=== PATIENT | female | born 1965 | race Caucasian/White ===

== ENCOUNTER → 2022-07-21 | Outpatient (CLI) | payer OTHER ==
--- NOTE | 2022-07-27 20:03 | MM ---
Reason for Exam: Screening (asymptomatic). Last mammogram was performed 3 year(s) and 11 month(s) ago. Patient History: Menarche at age 16. First Full-Term at age 19. Postmenopausal. Risk Values: Deirdre 5 year model risk: 0.8%. NCI Lifetime model risk: 5.5%. Prior Study Comparison: No prior studies available for comparison. Tissue Density: The breast tissue is heterogeneously dense. This may lower the sensitivity of mammography. Findings: Analyzed By CAD. No significant mass, suspicious microcalcification, or other discrete abnormality is seen. Overall Assessment: Negative, BI-RAD 1 Management: Screening Mammogram of both breasts in 1 year. 1. Patient should continue monthly self breast exams. 2. A clinical breast exam by your physician is recommended on an annual basis. 3. This exam should not preclude additional follow-up of suspicious palpable abnormalities. Electronically signed and approved by: Fay Mooyd M.D. Radiologist
== END | disposition home or self-care (01) ==
LOC: RADMAMWWP 09:23
PROVIDERS: ATTEND Physician Assistant
DX: Z12.31 Encounter for screening mammogram for malignant neoplasm of breast (principal)
CPT/HCPCS: 77063; 77067

== ENCOUNTER → 2023-07-23 | Outpatient (CLI) | payer OTHER ==
--- NOTE | 2023-07-24 15:49 | MM ---
Reason for Exam: Screening (asymptomatic). Last screening mammogram was performed 12 month(s) ago. Patient History: Menarche at age 16. First Full-Term at age 19. Postmenopausal. Risk Values: Deirdre 5 year model risk: 0.8%. NCI Lifetime model risk: 5.3%. Prior Study Comparison: 09/12/2017 Bilateral MG diagnostic mammo w CAD TRACY - 2, [facility]. 08/14/2018 Bilateral MG diagnostic mammo w CAD TRACY - 2, [facility]. 07/21/2022 Bilateral MG 3D screening mammo w/cad, [facility]. Tissue Density: There are scattered fibroglandular densities. Findings: Analyzed By CAD. Pattern appears symmetrical and stable. No significant interval change is evident. Chronic nodularity is within the upper outer left breast. Benign-appearing punctate calcifications within the left breast. No suspicious groups of microcalcifications, spiculated or lobular masses, architectural distortion or other secondary signs of malignancy are mammographically apparent. Overall Assessment: Benign, BI-RAD 2 Management: Screening Mammogram of both breasts in 1 year. A negative mammogram report should not preclude additional follow up of suspicious palpable abnormalities. Patient should continue monthly self breast exam. A clinical breast exam by your physician is recommended on an annual basis and results should be correlated with mammographic findings. Electronically signed and approved by: Prem Valadez D.O. Radiologis
== END | disposition home or self-care (01) ==
LOC: RADMAMWWP 16:17
PROVIDERS: ATTEND Student in an Organized Health Care Education/Training Program
DX: Z12.31 Encounter for screening mammogram for malignant neoplasm of breast (principal); Z78.0 Asymptomatic menopausal state
CPT/HCPCS: 77063; 77067

== ENCOUNTER → 2023-09-07 | Outpatient (CLI) | payer OTHER ==
--- NOTE | 2023-09-07 15:27 | CT ---
EXAMINATION TYPE: CT chest wo con DATE OF EXAM: 09/07/2023 COMPARISON: 09/19/2015 HISTORY: 58-year-old female R91.8 OTHER NONSPECIFIC ABNORMAL FINDING OF LUNG F, Other nonspecific abn ormal findings of lung field TECHNIQUE: Contiguous axial scanning of the chest without IV contrast. Coronal/sagittal reconstructio ns performed. CT DLP: 123.00mGycm. Automatic exposure control utilized for a dose reduction. FINDINGS: Heart normal size without pericardial effusion. Aorta normal caliber with conventional arch vessel branching anatomy. No thoracic lymphadenopathy by CT size criteria. All of the is moderate to advanced emphysematous lupe nges. Right apical pleural-parenchymal scarring. 4 mm anterior right basilar pulmonary nodule. No consolidation or pleural effusion. Visualized upper abdomen shows no gross anomaly. Bones: No osseous destructive process. IMPRESSION: 1. COPD with moderate to advanced emphysema. No acute pulmonary process. 2. A 4 mm anterior right basilar pulmonary nodule. This was present back on the patient's 2015 CT abd omen and pelvis compatible with a benign etiology.
== END | disposition home or self-care (01) ==
LOC: RADCTMAIN 13:37
PROVIDERS: ATTEND Student in an Organized Health Care Education/Training Program
DX: J43.9 Emphysema, unspecified (principal); R91.8 Other nonspecific abnormal finding of lung field
CPT/HCPCS: 71250

== ENCOUNTER → 2024-07-18 | Outpatient (CLI) | payer OTHER ==
--- NOTE | 2024-07-18 13:29 | CT ---
EXAMINATION TYPE: CT chest wo con CT DLP: 150.1 mGycm, Automated exposure control for dose reduction was used. DATE OF EXAM: 07/18/2024 9:44 AM COMPARISON: CT chest 09/07/2023, CT abdomen and pelvis 09/19/2015. CLINICAL INDICATION:Female, 59 years old with history of F17.210 NICOTINE DEPENDENCE, CIGARETTES, [facility] OMPLIC; PHH, lung nodule TECHNIQUE: Multiple axial images were obtained through the chest without IV contrast. Lack of IV or o ral contrast limits evaluation of solid and hollow organ viscera. . Coronal and sagittal reformats re viewed. FINDINGS: LUNGS/ PLEURA: Biapical pleural parenchymal scarring with right greater than left. Moderate to advanc ed centrilobular emphysematous changes demonstrated. Stable 4 mm anterior right basilar pulmonary nod ule (series 4, image 55). Development of left upper lobe curvilinear masslike consolidation with more solid component measuring 3.5 x 1.4 cm with central lucencies (series 4, image 15). There are linear and reticular opacities extending towards the lateral periphery. AIRWAY: Patent and unremarkable.. HEART: Size within normal limits. No pericardial effusion. MEDIASTINUM: No gross evidence of adenopathy. VASCULATURE: No aortic aneurysm. Mild atherosclerotic calcification of the aorta and its branches. MUSCULOSKELETAL: No acute osseous abnormalities. No aggressive osseous lesion SOFT TISSUES/LYMPH NODES: Unremarkable. LOWER NECK: No significant findings. UPPER ABDOMEN: No significant findings. IMPRESSION: 1. Development of left upper lobe linear masslike consolidation with surrounding reticular opacities. Nonspecific appearance with etiologies including lung neoplasm versus infectious/inflammatory etiolo gy. Consider further evaluation with PET/CT. 2. Stable anterior right basilar 4 mm pulmonary nodule dating back to 2014 and considered benign. 3. Moderate to advanced COPD changes are demonstrated.
== END | disposition home or self-care (01) ==
LOC: RADCTMAIN 09:22
PROVIDERS: ATTEND Family Medicine
DX: F17.210 Nicotine dependence, cigarettes, uncomplicated
CPT/HCPCS: 71250

== ENCOUNTER → 2024-09-26 | Outpatient (CLI) | payer OTHER ==
--- NOTE | 2024-09-30 13:54 | PE ---
EXAMINATION TYPE: PET CT fusion whole body DATE OF EXAM: 09/26/2024 CLINICAL INDICATION:Female, 59 years old with history of R91.8 LUNG MASS; TECHNIQUE: Following the intravenous administration of 10.2 mCi of F-18 FDG, whole body images are performed from the skull base to the midthigh. Images are reviewed on the computer in the coronal, a xial, and sagittal planes. Reconstructed rotating images are created on independent workstation and reviewed on the computer. A non-contrast CT is performed in conjunction with the PET scan. Glucose level 95 mg/dL CT DLP: 154 mGycm, Automated exposure control for dose reduction was used. COMPARISON: CT 07/18/2024, PET/CT None, MRI: None FINDINGS: Mediastinal SUV mean is 1.5. Hepatic parenchyma SUV mean is 2.2. SKULL BASE AND NECK: No suspicious radiotracer activity. CHEST, MEDIASTINUM, AND HILAR REGION: * Left upper lung peripheral consolidation/mass max SUV 16.2. Measuring at least 47 x 43 mm. Linear consolidation extending more posteriorly and medially max SUV 6.3 * Focus of uptake in the left subpectoral region possibly nonenlarged lymph node max SUV 2.8. ABDOMEN AND PELVIS: No suspicious radiotracer activity. MUSCULOSKELETAL STRUCTURES: No suspicious radiotracer activity. OTHER CT: * Mild emphysema. * Atherosclerosis of the carotid bifurcations. * Coronary artery atherosclerosis. IMPRESSION: Left upper lung intense uptake within the lung parenchyma consolidations concerning for malignancy. N o evidence for metastatic disease at this time. [facility], , 09/30/2024 1:52 PM
== END | disposition home or self-care (01) ==
LOC: RADPETMAIN 08:07
PROVIDERS: ATTEND Internal Medicine Critical Care Medicine
DX: R91.8 Other nonspecific abnormal finding of lung field (principal); J43.9 Emphysema, unspecified; I70.90 Unspecified atherosclerosis
CPT/HCPCS: 78816; A9552

== ENCOUNTER 2024-10-17 10:32 | Day surgery (SDC) | payer OTHER ==
[2024-10-15 13:59] VITALS: BMI 20.1
[~2024-10-17 10:32] MED LIST: LACTATED RINGERS 1,000 ML IV SCH
[2024-10-17] MEDS: IV FLUID CONTINUATION 1,000 ML IV ONE (11:28)
[2024-10-17] MEDS: LACTATED RINGERS 1,000 ML IV SCH (11:29)
[2024-10-17] MEDS: ATROPINE SULFATE 0.4 MG/ML 1 ML VIAL IM ONE (11:29)
[2024-10-17] MEDS ORDERED: SUCCINYLCHOLINE CHLORIDE 200 MG/10 ML VIAL IV ONE (11:39)
[2024-10-17] MEDS ORDERED: ALBUTEROL HFA INHALER INHALATION ONE (11:39)
[2024-10-17] MEDS ORDERED: ROCURONIUM 10 MG/ML (5 ML VIAL) IV ONE (11:39)
[2024-10-17] MEDS ORDERED: GLYCOPYRROLATE 0.2 MG/ML 2 ML VIAL ONE (11:39)
[2024-10-17] MEDS ORDERED: fentaNYL (PF) 50 MCG/ML 2 ML AMP ONE (11:39)
[2024-10-17] MEDS ORDERED: PROPOFOL 10 MG/ML 20 ML VIAL IV ONE (11:39)
[2024-10-17] MEDS ORDERED: LIDOCAINE 1% INJ 10MG/ML (20 ML MDV) ONE (11:39)
[2024-10-17] MEDS ORDERED: NEOSTIGMINE 1 MG/ML 10 ML VIAL ONE (11:39)
--- NOTE | 2024-10-17 12:32 | PCN ---
PROCEDURE NOTE PROCEDURES: Bronchoscopy, airway examination, therapeutic lavage, BAL left upper lobe, brushes left upper lobe, transbronchial and endobronchial biopsies left upper lobe. PREOPERATIVE DIAGNOSIS: Left upper lobe mass, rule out cancer. POSTOPERATIVE DIAGNOSIS: Left upper lobe mass, rule out cancer. The patient's procedure was done in room #1 [facility]. There was informed consent and universal timeout. ANESTHESIA PROVIDED: General endotracheal anesthesia. UTILITIES EQUIPMENT REPAIRER: Dr. Madrid. He was assisted by Dr. Mattie Metzger. DESCRIPTION OF PROCEDURE: After the patient was adequately sedated and on the effects of anesthesia, on the anesthesia machine, the bronchoscope was inserted through the bronchoscope adapter connected to the endotracheal tube. We did a thorough initial evaluation of both lungs. The right upper lobe and its 3 segments, right middle lobe and its 2 segments, right lower lobe and its 5 segments, left upper lobe proper and its 2 segments, lingula and its 2 segments, and left lower lobe and its 4 segments all appeared relatively normal. There was no dominant mass or tumor. There were minimal secretions noted throughout. They were suctioned without difficulty. Next, under fluoroscopic guidance, we did brushes x2, to the left upper lobe. We tried a sample of the anterior segment of left upper lobe and apical posterior segment of the left upper lobe. Subsequently, under fluoroscopic guidance. We did multiple transbronchial and endobronchial biopsies in the left upper lobe, focusing primarily on the anterior segment of left upper lobe and apical posterior segment of left upper lobe. Finally, we did a BAL left upper lobe. The patient tolerated the procedure well. There was minimal bleeding. We ensured hemostasis before the bronchoscope withdrawn. The patient tolerated the procedure well, was stable throughout the procedure. We used the fluoro machine to check for pneumothorax. There was no pneumothorax. The patient will have a chest x-ray after the procedure. The patient tolerated the procedure well and will be recovered. MMODL / IJN: [id number] /
[2024-10-17 12:35] VITALS: TEMP 97.1
--- NOTE | 2024-10-17 13:07 | FL ---
EXAMINATION TYPE: FL bronchoscopy DATE OF EXAM: 10/17/2024 12:23 PM COMPARISON: Pre Operative Images if available both CT/MRI or plain film CLINICAL INDICATION: Female, 59 years old with history of Abnormal Lung Finding; TECHNIQUE: FL bronchoscopy, multiple fluoroscopic images provided for procedure. Total fluoroscopy time: 1.37 min Total submitted images to PACS: 5 DAP: 0.5571 mGym2 Gycm2 uGym2 cGycm2 or equivalent. FINDINGS: ION bronchoscopy images demonstrate bronchoscope terminating in the lung. No immediate complications identified, no pneumothorax identified. IMPRESSION: 1. No evidence for intraoperative complication. 2. Please see the operative/procedural note for further details. [facility], , 10/17/2024 1:04 PM
[2024-10-17 13:10] VITALS: BP 123/76; PULSE 67; RESP 18
--- NOTE | 2024-10-17 14:17 | XR ---
EXAMINATION TYPE: XR chest 1V portable DATE OF EXAM: 10/17/2024 1:33 PM COMPARISON: 07/18/2024 CLINICAL INDICATION: Female, 59 years old with history of POST OP BRONCH; TECHNIQUE: XR chest 1V portable Frontal view of the chest. FINDINGS: Lungs/Pleura: Moderate to large left pneumothorax There is no evidence of pleural effusion, focal con solidation, or right pneumothorax. Pulmonary vascularity: Unremarkable. Heart/mediastinum: Cardiomediastinal silhouette is unremarkable. Musculoskeletal: No acute osseous pathology. IMPRESSION: Moderate to large left pneumothorax A Red level critical message alert has been initiated for Scar Madrid DO via the [employer] Critical Results System on 10/17/2024 2:14 PM. This message alert has been sent to Scar Madrid DO via the preferences provided by the clinician for the receipt of Radiology Critical Findings. Loli little ID [id number]. [facility], , 10/17/2024 2:14 PM
[2024-10-18 06:13] LABS: Appearance,BF Bloody (Clear); RBC, Body Fluid 151500 /UL (0-2000)
[2024-10-20 10:13] LABS: Nucleated Cells, Body Fluid 0 /UL
== END 2024-10-17 13:45 | disposition other institution (70) ==
LOC: ORWHC2ENDO 10:32
PROVIDERS: ATTEND Internal Medicine Critical Care Medicine
DX: J60 Coalworker's pneumoconiosis (principal); J98.4 Other disorders of lung; J95.811 Postprocedural pneumothorax; J44.89 Other specified chronic obstructive pulmonary disease; M79.7 Fibromyalgia; F41.9 Anxiety disorder, unspecified; F32.A Depression, unspecified; F17.200 Nicotine dependence, unspecified, uncomplicated; Z79.51 Long term (current) use of inhaled steroids; Z79.891 Long term (current) use of opiate analgesic; Z79.899 Other long term (current) drug therapy; Z85.41 Personal history of malignant neoplasm of cervix uteri; Z86.16 Personal history of COVID-19; Z88.0 Allergy status to penicillin
CPT/HCPCS: 87798 ×3; 87496; 87498; 87529; 88104; 88108; 88305; 89050; 87502; 87634; 87070; 87205; 87116; 87102; 87206; 87635; 71045; 31628; 31623; 31624; J0330; J0461; J2710; J2003; J3010; J2704; J1596

== ENCOUNTER 2024-10-17 13:47 | Inpatient (IN) | payer OTHER ==
--- NOTE | 2024-10-17 14:15 | ED ---
General Adult HPI - General Chief complaint: Shortness of Breath Stated complaint: lung issues Time Seen by Provider: 10/17/24 14:00 Source: patient, EMS, RN notes reviewed, old records reviewed Mode of arrival: EMS Limitations: no limitations - History of Present Illness Initial comments: Is a 59-year-old female who presents to the emergency department after having a bronchoscopy today and after the bronchoscopy was done a chest x-ray was done and showed a pneumothorax and the patient was sent down to the emergency department. Patient states she has no shortness of breath she denies any chest pain. Patient denies any recent fever chills or cough - Related Data Home Medications Medication Instructions Recorded Confirmed Sertraline [Zoloft] 50 mg PO DAILY 09/19/15 10/17/24 Albuterol Inhaler [Ventolin Hfa 2 puff INHALATION RT-Q4H PRN 10/15/24 10/17/24 Inhaler] Fluticasone/Umeclidin/Vilanter 1 puff INHALATION RT-DAILY 10/15/24 10/17/24 [Trelegy Ellipta 200-62.5-25] HYDROcodone/APAP 5-325MG [[place] 1 tab PO TID PRN 10/15/24 10/17/24 5-325] buPROPion XL [Wellbutrin XL] 150 mg PO DAILY 10/15/24 10/17/24 Gabapentin [Neurontin] 400 mg PO TID 10/17/24 10/17/24 Sertraline [Zoloft] 100 mg PO DAILY 10/17/24 10/17/24 Allergies Allergy/AdvReac Type Severity Reaction Status Date / Time monosodium glutamate [MSG] Allergy Dyspnea Verified 10/17/24 15:09 Penicillins Allergy Dyspnea Verified 10/17/24 15:09 Review of Systems ROS Statement: Those systems with pertinent positive or pertinent negative responses have been documented in the HPI. ROS Other: All systems not noted in ROS Statement are negative. Past Medical History Past Medical History: Asthma, Cancer, COPD, Fibromyalgia, GERD/Reflux Additional Past Medical History / Comment(s): IBS, emphysema, cervical cancer History of Any Multi-Drug Resistant Organisms: None Reported Past Surgical History: Section, Orthopedic Surgery Additional Past Surgical History / Comment(s): colonoscopy, EGD, right knee tumour removed Past Anesthesia/Blood Transfusion Reactions: No Reported Reaction Additional Past Anesthesia/Blood Transfusion Reaction / Comment(s): no blood transfusion Past Psychological History: No Psychological Hx Reported Smoking Status: Current every day smoker, Vaper General Exam - General Exam Comments Initial Comments: GENERAL: Patient is well-developed and well-nourished. Patient is nontoxic and well- hydrated and is in no acute distress. ENT: Neck is soft and supple. No significant lymphadenopathy is noted. Oropharynx is clear. Moist mucous membranes. Neck has full range of motion without eliciting any pain. EYES: The sclera were anicteric and conjunctiva were pink and moist. Extraocular movements were intact and pupils were equal round and reactive to light. Eyelids were unremarkable. PULMONARY: Unlabored respirations. Good breath sounds bilaterally. No audible rales rhonchi or wheezing was noted. CARDIOVASCULAR: There is a regular rate and rhythm without any murmurs gallops or rubs. ABDOMEN: Soft and nontender with normal bowel sounds. SKIN: Skin is clear with no lesions or rashes and otherwise unremarkable. NEUROLOGIC: Patient is alert and oriented x3. Cranial nerves II through XII are grossly intact. Motor and sensory are also intact. Normal speech, volume and content. Symmetrical smile. MUSCULOSKELETAL: Normal extremities with adequate strength and full range of motion. LYMPHATICS: No significant lymphadenopathy is noted PSYCHIATRIC: Normal psychiatric evaluation. Limitations: no limitations Course Vital Signs 10/17/24 10/17/24 13:51 16:53 Temperature 98 F Pulse Rate 60 64 Respiratory 17 18 Rate Blood Pressure 115/71 135/84 O2 Sat by Pulse 98 94 L Oximetry Procedures - Chest Tube Insertion Consent Obtained: verbal consent Side of Procedure: left Indication: Pneumothorax Placed on monitor/pulse oximetry: Yes Site Prep: Chloroprep Local Anesthesia: Lidocaine 1% Amount (mLs): 10 Insertion Site: Midaxillary, Other (Second intercostal space) Tube Size ([place]): Other (Thoravent was used) Sutured in Place: No Attached to Suction: Yes Repeat X-ray Results: Lung Inflated Patient Tolerated Procedure: well Complications: Pain, Bleeding (Minimal bleeding) Medical Decision Making - Medical Decision Making Was pt. sent in by a medical professional or institution (, PA, NECK BAND OPERATOR, urgent c are, hospital, or jail...) When possible be specific @ -No Did you speak to anyone other than the patient for history (EMS, parent, family, police, friend...)? What history was obtained from this source @ -No Did you review nursing and triage notes (agree or disagree)? Why? @ -I reviewed and agree with nursing and triage notes Were old charts reviewed (outside hosp., previous admission, EMS record, old EKG, old radiological studies, urgent care reports/EKG's, jail records)? Report findings @ -No old charts were reviewed Differential Diagnosis? @ -Differential Dyspnea: Coronary syndrome, arrhythmia, tamponade, asthma, COPD, pulmonary embolism, pneumonia, pneumothorax, pulmonary effusion, anaphylaxis, diabetic ketoacidosis, flailed chest, pulmonary contusion, diaphragmatic rupture, anemia, neuromuscular, this is not meant to be an all-inclusive list. EKG interpreted by me (3pts min.). @ -As above X-rays interpreted by me (1pt min.). @ -X-ray shows a pneumothorax. Repeat x-ray showed good placement of the thoravent. Third x-ray after the patient was hooked up to suction the pneumothorax had resolved CT interpreted by me (1pt min.). @ -None done U/S interpreted by me (1pt. min.). @ -None done What testing was considered but not performed or refused? (CT, X-rays, U/S, labs)? Why? @ -None What meds were considered but not given or refused? Why? @ -None Did you discuss the management of the patient with other professionals (professionals i.e. , PA, NECK BAND OPERATOR, lab, RT, psych nurse, licensed social worker, fusion analyst, teacher, ethics officer, director of casework department)? Give summary @ -Spoke with Dr. Madrid about the case on multiple occasions spoke with [facility] hospitalist and they agreed to admit the patient Was smoking cessation discussed for >3mins.? @ -No Was critical care preformed (if so, how long)? @ -No Were there social determinants of health that impacted care today? How? (Homelessness, low income, unemployed, alcoholism, drug addiction, transportation, low edu. Level, literacy, decrease access to med. care, group home, rehab)? @ -No Was there de-escalation of care discussed even if they declined (Discuss DNR or withdrawal of care, Hospice)? DNR status @ -No What co-morbidities impacted this encounter? (DM, HTN, Smoking, COPD, CAD, Cancer, CVA, ARF, Chemo, Hep., AIDS, mental health diagnosis, sleep apnea, morbid obesity)? @ -None Was patient admitted / discharged? Hospital course, mention meds given and route, prescriptions, significant lab abnormalities, going to OR and other pertinent info. @ -Patient has a thoravent with a fully inflated lung the patient will be admitted to [facility] and a consult be placed for Dr. Madrid Undiagnosed new problem with uncertain prognosis? @ -No Drug Therapy requiring intensive monitoring for toxicity (Heparin, Nitro, Insulin, Cardizem)? @ -No Were any procedures done? @ -No Diagnosis/symptom? @ -Pneumothorax Acute, or Chronic, or Acute on Chronic? @ -acute Uncomplicated (without systemic symptoms) or Complicated (systemic symptoms)? @ -Complicated Side effects of treatment? @ -No Exacerbation, Progression, or Severe Exacerbation? @ -No Poses a threat to life or bodily function? How? (Chest pain, [place], SD, pneumonia, PE, COPD, DKA, ARF, appy, cholecystitis, CVA, Diverticulitis, Homicidal, [place] icidal, threat to staff... and all critical care pts) @ -No - Lab Data Result diagrams: 10/17/24 14:09 10/17/24 14:09 Lab Results 10/17/24 10/17/24 10/17/24 Range/Units 14:09 14:09 17:00 WBC 5.9 (3.8-10.6) k/uL RBC 4.33 (3.80-5.40) m/uL Hgb 12.7 (11.4-16.0) gm/dL Hct 39.3 (34.0-46.0) % MCV 90.6 (80.0-100.0) fL MCH 29.4 (25.0-35.0) pg MCHC 32.4 (31.0-37.0) g/dL RDW 15.2 (11.5-15.5) % Plt Count 223 (150-450) k/uL MPV 7.8 Neutrophils % 62 % Lymphocytes % 29 % Monocytes % 5 % Eosinophils % 1 % Basophils % 0 % Neutrophils # 3.7 (1.3-7.7) k/uL Lymphocytes # 1.7 (1.0-4.8) k/uL Monocytes # 0.3 (0-1.0) k/uL Eosinophils # 0.1 (0-0.7) k/uL Basophils # 0.0 (0-0.2) k/uL PT 11.5 (10.0-12.5) sec INR 1.0 (<1.2) APTT 22.5 (22.0-30.0) sec Sodium 138 (137-145) mmol/L Potassium 4.3 (3.5-5.1) mmol/L Chloride 111 H (98-107) mmol/L Carbon Dioxide 24 (22-30) mmol/L Anion Gap 3 mmol/L BUN 8 (7-17) mg/dL Creatinine 0.64 (0.52-1.04) mg/dL Est GFR (CKD-EPI)AfAm >90 (>60 ml/min/1.73 sqM) Est GFR (CKD-EPI)NonAf >90 (>60 ml/min/1.73 sqM) Glucose 81 (74-99) mg/dL Calcium 9.3 (8.4-10.2) mg/dL Total Bilirubin 0.4 (0.2-1.3) mg/dL AST 20 (14-36) U/L ALT 10 (4-34) U/L Alkaline Phosphatase 93 (38-126) U/L Total Protein 6.6 (6.3-8.2) g/dL Albumin 4.1 (3.5-5.0) g/dL Disposition Clinical Impression: Pneumothorax Disposition: ADMITTED IP TO THIS [facility] Referrals: Nonstaff,Physician [Primary Care Provider] - 1-2 days Time of Disposition: 18:03
[2024-10-17 15:11] LABS: Basophils % (A) 0 %; Eosinophils # (A) 0.1 k/uL (0-0.7); Eosinophils % (A) 1 %; HCT 39.3 % (34.0-46.0); HGB 12.7 gm/dL (11.4-16.0); Lymphocytes # (A) 1.7 k/uL (1.0-4.8); Lymphocytes % (A) 29 %; MCH 29.4 pg (25.0-35.0); MCHC 32.4 g/dL (31.0-37.0); MCV 90.6 fL (80.0-100.0); Mean Platelet Volume 7.8; Monocytes # (A) 0.3 k/uL (0-1.0); Monocytes % (A) 5 %; Neutrophils # (A) 3.7 k/uL (1.3-7.7); Neutrophils % (A) 62 %; Platelet Count 223 k/uL (150-450); RBC 4.33 m/uL (3.80-5.40); RDW 15.2 % (11.5-15.5); WBC 5.9 k/uL (3.8-10.6)
[2024-10-17] MEDS: LIDOCAINE 1% INJ 10MG/ML (20 ML MDV) SQ ONE (15:17)
[2024-10-17] MEDS: methylPREDNISolone SOD SUCCI 125 MG/2 ML VIAL IV STA (15:19)
[2024-10-17] MEDS: HYDROmorphone 0.5 MG/0.5 ML SYRINGE IVP STA (15:19)
[2024-10-17 15:27] LABS: ALT 10 U/L (4-34); AST 20 U/L (14-36); African American GFR (CKD) >90 (>60 ml/min/1.73 sqM); Albumin 4.1 g/dL (3.5-5.0); Alkaline Phosphatase 93 U/L (38-126); Anion Gap 3 mmol/L; Blood Urea Nitrogen 8 mg/dL (7-17); Calcium 9.3 mg/dL (8.4-10.2); Carbon Dioxide 24 mmol/L (22-30); Chloride 111 mmol/L (98-107); Glucose 81 mg/dL (74-99); Non-African American GFR(CKD) >90 (>60 ml/min/1.73 sqM); Potassium 4.3 mmol/L (3.5-5.1); Sodium 138 mmol/L (137-145); Total Bilirubin 0.4 mg/dL (0.2-1.3); Total Protein 6.6 g/dL (6.3-8.2)
[2024-10-17] MEDS: LORazepam 2 MG/ML INJ IV STA (16:10)
--- NOTE | 2024-10-17 16:39 | XR ---
EXAMINATION TYPE: XR chest 2V DATE OF EXAM: 10/17/2024 4:34 PM COMPARISON: Chest radiographs from 10/17/2024 CLINICAL INDICATION: Female, 59 years old with history of thora-vent; [facility] TECHNIQUE: XR chest 2V Frontal and lateral views of the chest. FINDINGS: Lungs/Pleura: There is no evidence of pleural effusion, focal consolidation, or pneumothorax. Pulmonary vascularity: Unremarkable. Heart/mediastinum: Cardiomediastinal silhouette is unremarkable. Musculoskeletal: No acute osseous pathology. Other findings: None Lines/Tubes: Left thoracotomy tube is present with decrease in size of left pneumothorax. IMPRESSION: Left thoracotomy tube with mild decrease in size of pneumothorax. [facility], , 10/17/2024 4:37 PM
[2024-10-17 17:27] LABS: Partial Thromboplastin Time 22.5 sec (22.0-30.0); Prothrombin Time 11.5 sec (10.0-12.5)
--- NOTE | 2024-10-17 17:37 | XR ---
EXAMINATION TYPE: XR chest 1V portable DATE OF EXAM: 10/17/2024 5:24 PM COMPARISON: Chest radiographs from 10/17/2024. CLINICAL INDICATION: Female, 59 years old with history of Short of breath; TECHNIQUE: XR chest 1V portable Frontal view of the chest. FINDINGS: Lungs/Pleura: Left thoracotomy tube device with trace left apical pneumothorax. There is no evidence of pleural effusion, focal consolidation, or right pneumothorax. Pulmonary vascularity: Unremarkable. Heart/mediastinum: Cardiomediastinal silhouette is unremarkable. Musculoskeletal: No acute osseous pathology. IMPRESSION: Left thoracotomy tube with persistent trace apical pneumothorax [facility], , 10/17/2024 5:34 PM
[2024-10-17] MEDS ORDERED: ACETAMINOPHEN TAB 325 MG TAB PO PRN (22:45)
[2024-10-17] MEDS: HYDROcodone/APAP 5-325MG 1 EACH TAB PO PRN (22:53)
--- NOTE | 2024-10-18 02:59 | CONS ---
CONSULTATION HISTORY OF PRESENT ILLNESS: This is a 59-year-old female, who underwent bronchoscopy with transbronchial biopsies today. The patient presented to me with a mass, in the left upper lobe. Her PET scan was positive. She was scheduled for an outpatient procedure today. She had bronchoscopy airway examination, therapeutic lavage, BAL and transbronchial and endobronchial biopsies of the left upper lobe lesion. The procedure itself went well. There was no immediate complication. The patient was scanned after the procedure for pneumothorax by fluoroscopy, but it was not seen. The patient did have a chest x-ray after the fact, which showed a left-sided pneumothorax. The patient was sent to the ER where she was evaluated by Dr. Snowden. A Thora-Vent was placed. The lung unfortunately did not expand and the patient may benefit from a small bore chest tube. The patient has a history of lung mass, and has a history of COPD for many years of tobacco use. Other medical history includes fibromyalgia, gastroesophageal reflux disease, cervical cancer, and irritable bowel syndrome. The patient is a heavy smoker for many years. CURRENT LABORATORY DATA: Includes a white count 5.9, hemoglobin 12.7, hematocrit 39.3, and platelet count is 223,000. Sodium 138, potassium 4.3, chloride 111, CO2 of 24, BUN is 8, and creatinine 0.64. The rest of the comprehensive metabolic profile is normal. IMAGING DATA: The chest x-ray showed a pneumothorax that was both apically and laterally located. After the Thora-Vent placement, the patient's pneumothorax did not expand. The patient was seen in the emergency department, in trauma room 1. No fluids were given and she did not have an IV. She was on room air and looked very comfortable. PAST MEDICAL HISTORY: As mentioned includes COPD, cervical cancer, fibromyalgia, GERD, and irritable bowel syndrome. SURGICAL HISTORY: Includes and various orthopedic procedures as well as EGD. SOCIAL HISTORY: Positive for ongoing tobacco use. FAMILY HISTORY: Noncontributory. ALLERGIES: MSG and penicillin. OCCUPATIONAL HISTORY: Noncontributory. REVIEW OF SYSTEMS: CONSTITUTIONAL: Negative. NEUROLOGIC: Negative. HEENT: Negative. CARDIOVASCULAR: Negative. PULMONARY: Negative. GI/: Negative. HEMATOLOGIC/IMMUNOLOGIC: Negative. ENDOCRINOLOGIC: Negative. PHYSICAL EXAMINATION: VITAL SIGNS: Current vital signs include temperature 98, heart rate 60, respiratory rate 17, blood pressure 115/71, room air saturation 98%, and mean 85. GENERAL: She appears in no acute distress. HEENT: Grossly unremarkable. NECK: Supple. Full range of motion. No adenopathy. Neck veins are flat. CARDIOVASCULAR: Regular rhythm and rate. S1, S2 normal. Heart rate 60 beats per minute. LUNGS: Diminished breath sounds on the left. Right lung is clear. ABDOMEN: Soft. Bowel sounds are heard. EXTREMITIES: Intact. No cyanosis, clubbing, or edema. SKIN: Without rash. NEUROLOGIC: Brief, but nonfocal. Chest x-rays reviewed. Labs are reviewed. ASSESSMENT: 1. Left-sided pneumothorax following bronchoscopy, and transbronchial biopsies, for left upper lobe lung mass. 2. Rule out bronchogenic carcinoma. 3. Chronic obstructive pulmonary disease. 4. History of irritable bowel syndrome. 5. History of cervical cancer. 6. Fibromyalgia. 7. Gastroesophageal reflux disease. 8. Ongoing tobacco use with nicotine addiction. PLAN: The patient had Thora-Vent placed in the emergency department by Dr. Snowden. Left lung did not fully expand. She may need a small bore chest tube. Additional recommendations and suggestions are forthcoming. Prognosis is guarded. The placed was placed on suction via Pleuravac and the lung inflated. MMODL / IJN: [id number] / MTDD
--- NOTE | 2024-10-18 05:27 | XR ---
EXAMINATION TYPE: XR chest 1V portable DATE OF EXAM: 10/18/2024 CLINICAL HISTORY: Left-sided pneumothorax progress study. TECHNIQUE: Single AP portable upright view of the chest is obtained. COMPARISON: Chest x-ray from one day earlier FINDINGS: Left-sided chest tube redemonstrated without significant left-sided pneumothorax on curren t study. Background chronic emphysematous change with lateral left upper lobe increased opacity redemonstrated . Cardiac silhouette size stable and within normal limits. Osseous structures are intact IMPRESSION: Left-sided chest tube without visualized left-sided pneumothorax on current study. There is lateral left upper lung opacity redemonstrated could reflect malignancy. [facility], , 10/18/2024 5:25 AM
--- NOTE | 2024-10-18 08:53 | P.GSCN ---
History of Present Illness Consult date: 10/18/24 Reason for Consult: Left pneumothorax, Thoravent management Requesting physician: Scar Madrid History of present illness: This is a 59-year-old female patient who follows with Dr. Scar Madrid for her pulmonary care. She has a past medical history significant for a left upper lobe mass, PET positive, COPD, chronic ongoing tobacco dependence smoking 1 pack a day for the last 47 years, depression, fibromyalgia, gastroesophageal reflux disease, cervical cancer, irritable bowel syndrome, and daily marijuana use. The patient reports that due to her smoking history she underwent a screening CT scan of her chest on September 26, 2024 which revealed a left upper lobe curvilinear masslike consolidation with more solid component measuring 3.5 x 1.4 cm with central lucencies. Due to the findings of the left upper lobe mass she underwent a PET scan on September 30, 2024 which showed left upper lung intense uptake within the lung parenchyma consolidations concerning for malignancy, and no evidence for metastatic disease at that time. Due to the findings on the CT scan of the chest the patient was referred to Dr. Madrid from pulmonary/critical care medicine for further evaluation and treatment recommendations. She was subsequently scheduled for an elective bronchoscopy airway examination, therapeutic lavage, BAL and transbronchial and endobronchial biopsies of the left upper lobe lesion yesterday 10/17/2024 to be performed by Dr. Madrid. Subsequently, after the procedure the patient did have some left-sided chest discomfort and difficulty taking a deep breath due to the chest discomfort and her follow-up chest x-ray revealed a left-sided pneumothorax. The patient was transferred to the emergency department here at [facility] and she had a left Thoravent placed by the emergency room physician. Follow-up chest x-ray this morning shows a left-sided Thora vent in place without vi sualized left-sided pneumothorax. the Thoravent is connected to an [place] Pleur- evac system with low continuous wall suction -20 cm H2O. Intermittent air leak is present. No drainage present. The patient denies any recent fever, chills, nausea, vomiting, headache, hemoptysis, hematemesis, visual disturbances, presyncope or syncope. Due to the pneumothorax and placement of Thoravent Dr. Walt Last from cardiothoracic surgery was consulted for Thoravent management. Review of Systems A review of systems was completed and was negative except as mentioned in the HPI. Past Medical History Past Medical History: Asthma, Cancer, COPD, Fibromyalgia, GERD/Reflux Additional Past Medical History / Comment(s): Irritable bowel syndrome, emphysema, cervical cancer, fibromyalgia History of Any Multi-Drug Resistant Organisms: None Reported Past Surgical History: Section, Orthopedic Surgery Additional Past Surgical History / Comment(s): colonoscopy, EGD, right knee fatty tumour removed, surgery for cervical cancer Past Anesthesia/Blood Transfusion Reactions: No Reported Reaction Additional Past Anesthesia/Blood Transfusion Reaction / Comm: no blood transfusion Past Psychological History: Depression Smoking Status: Current every day smoker, Vaper Past Alcohol Use History: None Reported Past Drug Use History: Marijuana Additional Drug Use History / Comment(s): Smokes 1 joint per day - Past Family History Mother Family Medical History: Hypertension Medications and Allergies Home Medications Medication Instructions Recorded Confirmed Type Sertraline [Zoloft] 50 mg PO DAILY 09/19/15 10/17/24 History Albuterol Inhaler [Ventolin Hfa 2 puff INHALATION RT-Q4H PRN 10/15/24 10/17/24 History Inhaler] Fluticasone/Umeclidin/Vilanter 1 puff INHALATION RT-DAILY 10/15/24 10/17/24 History [Trelegy Ellipta 200-62.5-25] HYDROcodone/APAP 5-325MG [[place] 1 tab PO TID PRN 10/15/24 10/17/24 History 5-325] buPROPion XL [Wellbutrin XL] 150 mg PO DAILY 10/15/24 10/17/24 History Gabapentin [Neurontin] 400 mg PO TID 10/17/24 10/17/24 History Sertraline [Zoloft] 100 mg PO DAILY 10/17/24 10/17/24 History Allergies Allergy/AdvReac Type Severity Reaction Status Date / Time monosodium glutamate [MSG] Allergy Dyspnea Verified 10/17/24 15:09 Penicillins Allergy Dyspnea Verified 10/17/24 15:09 Surgical - Exam Vital Signs Temp Pulse Resp BP Pulse Ox 98 F 60 17 115/71 98 10/17/24 13:51 10/17/24 13:51 10/17/24 13:51 10/17/24 13:51 10/17/24 13:51 - General well developed, well nourished, no distress, no pain, chronically ill - Eyes PERRL, normal ocular movement, no pale, no icteric - ENT normal pinna, normal nares, normal mucosa, no hearing loss, no congestion, poor custodial (Lower teeth), dentures (Upper plate) - Respiratory Lung sounds essentially clear throughout. No wheezes, rhonchi or crackles. Respirations are symmetrical and nonlabored. Left Thoravent chest tube in place to low continuous wall suction -20 cm H2O. Intermittent airleak is present. No drainage present. - Cardiovascular Regular rhythm and rate. S1 and S2 present, negative for S3, gallop or murmur. - Abdomen Abdomen is soft, nontender nondistended. Active bowel sounds present all 4 abdominal quadrants. No guarding or rigidity. - Genitourinary Deferred - Rectum Deferred - Integumentary Skin is warm and dry. No clubbing or cyanosis is present. no rash, no growths, no abnormal pigmentation - Neurologic No focal deficits. normal coordination, normal sensation - Musculoskeletal Moves all 4 extremities with equal strength bilateral. normal gait, normal posture - Psychiatric oriented to time, oriented to person, oriented to place, speech is normal, memory intact Results - Labs 10/17/24 14:09 10/17/24 14:09 Abnormal Lab Results - Last 24 Hours (Table) 10/17/24 Range/Units 14:09 Chloride 111 H (98-107) mmol/L Diabetes panel 10/17/24 Range/Units 14:09 Sodium 138 (137-145) mmol/L Potassium 4.3 (3.5-5.1) mmol/L Chloride 111 H (98-107) mmol/L Carbon Dioxide 24 (22-30) mmol/L BUN 8 (7-17) mg/dL Creatinine 0.64 (0.52-1.04) mg/dL Glucose 81 (74-99) mg/dL Calcium 9.3 (8.4-10.2) mg/dL AST 20 (14-36) U/L ALT 10 (4-34) U/L Alkaline Phosphatase 93 (38-126) U/L Total Protein 6.6 (6.3-8.2) g/dL Albumin 4.1 (3.5-5.0) g/dL Calcium panel 10/17/24 Range/Units 14:09 Calcium 9.3 (8.4-10.2) mg/dL Albumin 4.1 (3.5-5.0) g/dL Pituitary panel 10/17/24 Range/Units 14:09 Sodium 138 (137-145) mmol/L Potassium 4.3 (3.5-5.1) mmol/L Chloride 111 H (98-107) mmol/L Carbon Dioxide 24 (22-30) mmol/L BUN 8 (7-17) mg/dL Creatinine 0.64 (0.52-1.04) mg/dL Glucose 81 (74-99) mg/dL Calcium 9.3 (8.4-10.2) mg/dL Adrenal panel 10/17/24 Range/Units 14:09 Sodium 138 (137-145) mmol/L Potassium 4.3 (3.5-5.1) mmol/L Chloride 111 H (98-107) mmol/L Carbon Dioxide 24 (22-30) mmol/L BUN 8 (7-17) mg/dL Creatinine 0.64 (0.52-1.04) mg/dL Glucose 81 (74-99) mg/dL Calcium 9.3 (8.4-10.2) mg/dL Total Bilirubin 0.4 (0.2-1.3) mg/dL AST 20 (14-36) U/L ALT 10 (4-34) U/L Alkaline Phosphatase 93 (38-126) U/L Total Protein 6.6 (6.3-8.2) g/dL Albumin 4.1 (3.5-5.0) g/dL - Imaging Chest x-ray: report reviewed, image reviewed Assessment and Plan Assessment: Left-sided pneumothorax following bronchoscopy, and transbronchial biopsies for left upper lobe lung mass, subsequent placement of left Thoravent chest tube Left upper lobe lung mass, with positive PET scan Chronic obstructive pulmonary disease Irritable bowel syndrome History of cervical cancer Fibromyalgia Gastroesophageal reflux disease Chronic ongoing tobacco dependence Daily marijuana use Plan: The patient was seen and examined at her bedside in the emergency department. Her chart and diagnostics were reviewed. Her case was discussed in detail with Dr. Walt Last from cardiothoracic surgery. Continue her left Thoravent to low continuous wall suction -20 cm H2O. Continue to monitor for airleak resolution. We will monitor daily chest x-rays. An incentive spirometry has been ordered and encourage use 10 times every hour while awake. The importance of risk modification including smoking cessation has been discussed with the p atient. The number to [id number] will be given to the patient upon discharge. Pain management per current as needed orders. Can start Toradol for additional pain control. Increase activity as tolerated, may add additional suction tubing to the Pleur-evac system so the patient may ambulate to the bathroom with assistance. Medical management of other comorbidities per internal medicine and pulmonary/critical care medicine. More recommendations to follow based on patient's clinical course. Thank you Dr. Madrid for this consult and we look forward to working with you in the care of this patient. I have personally seen and examined the patient, performed the documentation and the assessment and plan as written. Number of minutes spent on the visit: 30. JACEK Mon
--- NOTE | 2024-10-18 10:19 | P.PN ---
Subjective Progress Note Date: 10/18/24 Principal diagnosis: Left sided pneumothorax. Progress note dated October 18, 2024. 59-year-old female seen today in the emergency department, room 3. The patient underwent a bronchoscopy yesterday, for a lesion in the left upper lobe. The patient sustained a left-sided pneumothorax, and was sent to the emergency department, where, Dr. Snowden placed a Thora vent. The Thora vent was hooked up to suction and a Pleur-evac, and the left lung expanded. The patient is seen in the emergency department. She is on room air. No IV fluids. Her chest x-ray this morning was much improved. Other than for some mild pain in the chest area, the patient appears to be doing relatively well. In addition to suspected bronchogenic carcinoma and underlying COPD, she has a history of irritable bowel syndrome, cervical cancer, fibromyalgia, GERD, and ongoing tobacco use with nicotine addiction. No new labs today. Chest x-ray was reviewed. Objective - Vital Signs Vital signs: Vital Signs Temp 98 F 10/17/24 13:51 Pulse 52 L 10/18/24 06:00 Resp 20 10/18/24 07:25 BP 121/67 10/18/24 06:00 Pulse Ox 97 10/18/24 06:00 FiO2 Intake & Output 10/17/24 10/18/24 10/18/24 18:59 06:59 18:59 Weight 49.895 kg - Exam No acute distress, oriented 3. On room air. HEENT examination is grossly unremarkable. Mucous membranes are moist. No oral lesions. Neck supple. Full range of motion. No adenopathy thyromegaly or neck vein dist ention. Cardiovascular examination reveals regular rhythm rate. S1-S2 normal. No S3 or S4. No discernible murmur noted. Lungs reveal clear breath sounds. Breath sounds are equal bilaterally. No adventitious lung sounds including wheezes rhonchi or crackles. Left-sided Thora vent is noted. Abdomen soft bowel sounds are heard. No masses or tenderness. Extremities are intact. No cyanosis clubbing or edema. Skin is without rash or lesion. Neurologic examination is brief but nonfocal. - Labs CBC & Chem 7: 10/17/24 14:09 10/17/24 14:09 Labs: Abnormal Lab Results - Last 24 Hours (Table) 12/13/24 Range/Units 14:09 Chloride 111 H (98-107) mmol/L Assessment and Plan Assessment: Postop day #1, status post bronchoscopy with transbronchial biopsies left upper lobe, for suspected bronchogenic carcinoma. Postprocedure left-sided pneumothorax,S/P Thora vent placement. Ongoing tobacco use with nicotine addiction. Moderate COPD with a FEV1 that 71% of predicted. Gastroesophageal reflux disease. Fibromyalgia. History of cervical cancer. History of irritable bowel syndrome. Plan: Plan dated October 18, 2024. The patient will have a follow-up chest x-ray in the morning. Cardiothoracic surgery has been consulted and will see the patient. The left lung looks fully expanded, at the current time. The patient is not having any shortness of breath. In fact, the patient is not requiring any supplemental oxygen. Labs, x-rays, and all medications are reviewed. Prognosis is certainly guarded. Biopsies will not likely be available for about 7 days. Time with Patient: Less than 30
[2024-10-18] MEDS: KETOROLAC 15 MG/ML 1 ML VIAL IVP SCH (11:07)
[2024-10-18] MEDS ORDERED: ALBUTEROL NEBULIZED 2.5 MG/3 ML INHALATION PRN (14:07)
[2024-10-18] MEDS ORDERED: KETOROLAC 15 MG/ML 1 ML VIAL IVP PRN (14:11)
[2024-10-18] MEDS: SERTRALINE 50 MG TAB PO SCH (14:19)
[2024-10-18] MEDS: SERTRALINE 100 MG TAB PO SCH (14:19)
[2024-10-18] MEDS: GABAPENTIN 400 MG CAP PO SCH (15:27)
--- NOTE | 2024-10-18 16:45 | P.HPIM ---
History of Present Illness H&P Date: 10/18/24 History of present illness; Patient is a 59-year-old female with asthma and COPD with findings of left upper lobe mass and positive PET scan who presents for pneumothorax. Patient completing scheduled bronchoscopy with post scope chest x-ray findings of left upper lobe pneumothorax. She came to ER and chest tube was placed. Patient current symptoms include chest wall pain at site of chest tube placement. She reports no shortness of breath, chest pain. She is denying further symptoms at this time. Thora vent suction continues to show air leak. Labs completed in ER WBC 5.9, hemoglobin 12.7, sodium 138 potassium 4.3 BUN 8 glucose 81. Chest x-ray done independently interpreted in the ER showed left thoracotomy tube in place with mild decrease in left sided pneumothorax Spoke with the ER physician, patient admission was accepted by internal medicine service for treatment. REVIEW OF SYSTEMS: Pertinent positives and negatives noted in HPI. PHYSICAL EXAMINATION: Vitals reviewed GENERAL: No acute distress. Well developed, well nourished. HEENT: Pupils are round and equally reacting to light. EOMI. No scleral icterus. Normocephalic, atraumatic. CARDIOVASCULAR: S1 and S2 present. No murmurs, rubs, or gallops. PULMONARY: Chest tube in place in left sternal area. Chest is clear to auscultation, no wheezing, rhonchi, or crackles. ABDOMEN: Soft, nontender, nondistended, normoactive bowel sounds. No palpable organomegaly. MUSCULOSKELETAL: No apparent joint swelling and deformities. EXTREMITIES: No apparent cyanosis, clubbing, or pedal edema. NEUROLOGICAL: The patient is alert and oriented x3, Gross neurological examination did not reveal any focal deficits. SKIN: No apparent rashes. Assessment and plan Patient is a 59-year-old female with asthma and COPD with findings of left upper lobe mass and positive PET scan who presents for pneumothorax. # Pneumothorax, left-sided with Thora vent placement Bronchoscopy completed with biopsy taken for suspected bronchogenic carcinoma Repeat chest x-ray tomorrow Pulmonology and CT surgery consulted Chronic Medical Conditions #COPD Resume home medications #Anxiety/Depression - Resume home medications F: P.o. E: Replete as needed N: Regular diet DVT ppx: Subq Lovenox 40 meq daily Code status: Anticipated discharge place: Home Anticipated discharge time: 1 to 2 days Dictation was produced using [employer] dictation software. Please excuse any grammatical, word or spelling errors. Attestation I have seen and examined this patient with my resident , discussed the same with the resident/MARTIN, and agree with the dictator's assessment and plan as written Dr. Mustapha ashby Past Medical History Past Medical History: Asthma, Cancer, COPD, Fibromyalgia, GERD/Reflux Additional Past Medical History / Comment(s): Irritable bowel syndrome, emphysema, cervical cancer, fibromyalgia History of Any Multi-Drug Resistant Organisms: None Reported Past Surgical History: Section, Orthopedic Surgery Additional Past Surgical History / Comment(s): colonoscopy, EGD, right knee fatty tumour removed, surgery for cervical cancer Past Anesthesia/Blood Transfusion Reactions: No Reported Reaction Additional Past Anesthesia/Blood Transfusion Reaction / Comment(s): no blood transfusion Past Psychological History: Depression Smoking Status: Current every day smoker, Vaper Past Alcohol Use History: None Reported Past Drug Use History: Marijuana Additional Drug Use History / Comment(s): Smokes 1 joint per day - Past Family History Mother Family Medical History: Hypertension Medications and Allergies Home Medications Medication Instructions Recorded Confirmed Type Sertraline [Zoloft] 50 mg PO DAILY 09/19/15 10/17/24 History Albuterol Inhaler [Ventolin Hfa 2 puff INHALATION RT-Q4H PRN 10/15/24 10/17/24 History Inhaler] Fluticasone/Umeclidin/Vilanter 1 puff INHALATION RT-DAILY 10/15/24 10/17/24 History [Trelegy Ellipta 200-62.5-25] HYDROcodone/APAP 5-325MG [[place] 1 tab PO TID PRN 10/15/24 10/17/24 History 5-325] buPROPion XL [Wellbutrin XL] 150 mg PO DAILY 10/15/24 10/17/24 History Gabapentin [Neurontin] 400 mg PO TID 10/17/24 10/17/24 History Sertraline [Zoloft] 100 mg PO DAILY 10/17/24 10/17/24 History Allergies Allergy/AdvReac Type Severity Reaction Status Date / Time monosodium glutamate [MSG] Allergy Dyspnea Verified 10/17/24 15:09 Penicillins Allergy Dyspnea Verified 10/17/24 15:09 Physical Exam Vitals: Vital Signs Temp Pulse Resp BP Pulse Ox 12/14/24 16:23 60 18 116/69 96 10/18/24 14:06 97.9 F 56 L 18 98/60 97 10/18/24 10:35 54 L 18 104/62 96 10/18/24 07:25 20 10/18/24 06:00 52 L 18 121/67 97 10/18/24 04:00 59 L 18 125/69 95 10/18/24 02:00 55 L 18 124/60 95 10/18/24 00:00 62 18 116/60 94 L 10/17/24 22:00 60 18 110/62 96 10/17/24 20:30 68 18 106/63 95 10/17/24 18:00 67 17 137/77 94 L 10/17/24 16:53 64 18 135/84 94 L Results CBC & Chem 7: 10/19/24 06:56 10/19/24 06:56
[2024-10-18] MEDS: SYMBICORT 80-4.5 MCG INHALER INHALATION SCH (20:59)
--- NOTE | 2024-10-19 05:27 | XR ---
EXAMINATION TYPE: XR chest 1V portable DATE OF EXAM: 10/19/2024 CLINICAL HISTORY: Left-sided pneumothorax progress study. TECHNIQUE: Single AP portable upright view of the chest is obtained. COMPARISON: Chest x-ray from one day earlier FINDINGS: Left-sided chest tube redemonstrated with suspected tiny left apical pneumothorax on curre nt study. There is new left-sided subcutaneous emphysema making evaluation left lung apex suboptimal. Background chronic emphysematous change with lateral left upper lobe increased opacity redemonstrated . New left basilar patchy atelectasis. Cardiac silhouette size stable and within normal limits. [place]re[place] us structures are intact IMPRESSION: There is new significant left-sided subcutaneous emphysema. There is suspected tiny left apical pneumothorax on current study despite chest tube placement. [facility], , 10/19/2024 5:24 AM
[2024-10-19 07:16] LABS: HCT 44.8 % (34.0-46.0); HGB 14.3 gm/dL (11.4-16.0); MCH 29.4 pg (25.0-35.0); MCV 91.9 fL (80.0-100.0); Platelet Count 222 k/uL (150-450); RBC 4.87 m/uL (3.80-5.40); RDW 15.5 % (11.5-15.5); WBC 9.5 k/uL (3.8-10.6)
[2024-10-19 07:26] LABS: African American GFR (CKD) 89 (>60 ml/min/1.73 sqM); Anion Gap 3 mmol/L; Blood Urea Nitrogen 13 mg/dL (7-17); Calcium 9.4 mg/dL (8.4-10.2); Carbon Dioxide 28 mmol/L (22-30); Chloride 106 mmol/L (98-107); Glucose 94 mg/dL (74-99); Non-African American GFR(CKD) 77 (>60 ml/min/1.73 sqM); Potassium 4.4 mmol/L (3.5-5.1); Sodium 137 mmol/L (137-145)
[2024-10-19] MEDS: ENOXAPARIN 40 MG/0.4 ML SYRINGE SQ SCH (08:13)
[2024-10-19] MEDS: buPROPion XL 150 MG TAB.ER.24H PO SCH (08:14)
--- NOTE | 2024-10-19 09:03 | XR ---
EXAMINATION TYPE: XR chest 1V portable DATE OF EXAM: 10/19/2024 8:55 AM COMPARISON: Chest radiograph from one day prior. CLINICAL INDICATION: Female, 59 years old with history of evaluate left pneumothorax; [facility] TECHNIQUE: XR chest 1V portable Frontal view of the chest. FINDINGS: Lungs/Pleura: There is no evidence of pleural effusion, focal consolidation, or pneumothorax. Pulmonary vascularity: Unremarkable. Heart/mediastinum: Cardiomediastinal silhouette is unremarkable. Musculoskeletal: No acute osseous pathology. Other findings: Subcutaneous emphysema scattered throughout the visualized thorax. Lines/Tubes: Left thoracotomy tube is present with trace pneumothorax. IMPRESSION: 1. Trace left pneumothorax 2. Subcutaneous emphysema along the left chest correlate for air leak. [facility], , 10/19/2024 9:00 AM
[2024-10-19] MEDS: IPRATROPIUM 0.5 MG/2.5 ML NEBU INHALATION SCH (09:16)
--- NOTE | 2024-10-19 09:16 | P.PN ---
Subjective Progress Note Date: 10/19/24 Principal diagnosis: Left pneumothorax, status post bronchoscopy. Past medical history significant for a left upper lobe mass, PET positive, COPD, chronic ongoing tobacco dependen ce smoking 1 pack a day for the last 47 years, depression, fibromyalgia, gastroesophageal reflux disease, cervical cancer, irritable bowel syndrome, and daily marijuana use. POD #2 placement of left Thoravent by the emergency room physician The patient was seen and examined in follow-up today October 19, 2024 at her bedside on the third floor cardiac stepdown unit. She is currently sitting up to the bedside edge, is awake, alert, oriented x 3 and is in no acute apparent distress. The patient denies any complaints of shortness of breath at this time, although was complaining of some pain to her left chest where the Thoravent is placed and with taking a deep breath. She is also complaining of pain to her left breast. There is some subcutaneous emphysema present to her left chest and back. Oxygen saturations are 97% on room air and she is achieving 2000 milliliters on her incentive spirometry with encouragement. Remote telemetry is showing sinus bradycardia heart rate 58 bpm. Left Thoravent remains in place and connected to Pleur-evac system on continuous low wall suction -20 cm H2O. Occasional airleak present with coughing. Scant serosanguineous drainage with 5 to 10 mL output in the last 24 hours. The patient reports she has been up ambulating in her room and up to the bathroom without difficulty and has been sitting up in the chair for meals. Chest x-ray results reviewed. Objective - Vital Signs Vital signs: Vital Signs Temp 98.1 F 10/19/24 08:07 Pulse 55 L 10/19/24 08:07 Resp 16 10/19/24 08:07 BP 137/62 10/19/24 08:07 Pulse Ox 98 10/19/24 08:07 FiO2 Intake & Output 10/18/24 10/19/24 10/19/24 18:59 06:59 18:59 Intake Total 180 180 Output Total 5 0 Balance 180 -5 180 Weight 49.895 kg 49.2 kg Intake: Oral 180 180 Output: Chest Tube Drainage 5 0 Thora-Vent Left 5 0 Other: Voiding Method Toilet # Voids 1 - Exam CONSTITUTIONAL: Appears comfortable, cooperative, no acute distress RESPIRATORY: Lungs sounds diminished bilaterally. Respirations symmetrical, nonlabored. Currently on room air with oxygen saturation 96%. Able to achieve 2000 mL on incentive spirometry. Strong cough. CARDIOVASCULAR: S1, S2 present. Regular rate and rhythm, sinus rhythm on telemetry. Palpable peripheral pulses bilaterally. No edema present. No calf pain or tenderness noted. SCDs present. GASTROINTESTINAL: Abdomen soft, nontender, nondistended. Active bowel sounds present 4 quadrants. Tolerating diet. Positive bowel movement. GENITOURINARY: Continues to void clear, yellow urine INTEGUMENTARY: Skin is warm and dry with no clubbing or cyanosis present. NEUROLOGIC: Cranial nerves II through XII intact. No focal deficits. MUSKULOSKELETAL: Able to move all extremities, strength equal bilaterally, gait normal. PSYCHIATRIC: Alert and oriented to person place and time, appropriate affect, intact judgment and insight. INVASIVE LINES AND TUBES: Left Thoravent in place connected to Pleur-evac on low continuous wall suction -20 cm H2O. Occasional intermittent airleak present with coughing. Left Thoravent chest tube with scant thin serosanguineous drai nage in the last 24 hours 10 mL. - Allied health notes Allied health notes reviewed: nursing - Labs CBC & Chem 7: 10/19/24 06:56 10/19/24 06:56 - Imaging and Cardiology Chest x-ray: report reviewed, image reviewed Assessment and Plan Assessment: Left-sided pneumothorax following bronchoscopy, and transbronchial biopsies for left upper lobe lung mass, subsequent placement of left Thoravent chest tube Left upper lobe lung mass, with positive PET scan Chronic obstructive pulmonary disease Irritable bowel syndrome History of cervical cancer Fibromyalgia Gastroesophageal reflux disease Chronic ongoing tobacco dependence Daily marijuana use Plan: Continue to monitor daily chest x-rays. Continue to monitor left Thoravent for airleak resolution. Continue to monitor subcutaneous emphysema. Encourage use of incentive spirometry 10 times every hour while awake. Importance of risk modification including smoking cessation has been discussed with the patient. The number for 1800quitnow will be given to the patient upon discharge. Increase activity as tolerated. May add tubing to the chest tube so that the patient is able to ambulate. Out of bed for all meals. Pain control per current as needed orders. Continue Toradol 15 mg IV every 6 hours for pain. Medical management of other comorbidities per internal medicine and pulmonary/critical care service. More recommendations to follow based on patient's clinical course. Time with Patient: Greater than 30
[2024-10-19] MEDS: KETOROLAC 15 MG/ML 1 ML VIAL IVP SCH (11:30)
--- NOTE | 2024-10-19 11:52 | P.PN ---
Subjective Progress Note Date: 10/19/24 Principal diagnosis: Left sided pneumothorax. Progress note dated October 18, 2024. 59-year-old female seen today in the emergency department, room 3. The patient underwent a bronchoscopy yesterday, for a lesion in the left upper lobe. The patient sustained a left-sided pneumothorax, and was sent to the emergency department, where, Dr. Snowden placed a Thora vent. The Thora vent was hooked up to suction and a Pleur-evac, and the left lung expanded. The patient is seen in the emergency department. She is on room air. No IV fluids. Her chest x-ray this morning was much improved. Other than for some mild pain in the chest area, the patient appears to be doing relatively well. In addition to suspected bronchogenic carcinoma and underlying COPD, she has a history of irritable bowel syndrome, cervical cancer, fibromyalgia, GERD, and ongoing tobacco use with nicotine addiction. No new labs today. Chest x-ray was reviewed. Progress note dated October 19, 2024. 59-year-old female with a left-sided pneumothorax following bronchoscopy and biopsies, there is currently seen today in room 366. She is on room air. No IV fluids. She has a Thora vent and on the left side. It is connected to a Pleur- evac, she is on suction. The patient does have a intermittent leak. She has developed some subcutaneous emphysema. She has a small apical pneumothorax on the left. Clinically, she is very stable. Labs include a normal CBC, and a normal chemistry panel. Both chest x-ray today, were reviewed. Objective - Vital Signs Vital signs: Vital Signs Temp 98.1 F 10/19/24 08:07 Pulse 47 L 10/19/24 11:26 Resp 16 10/19/24 11:26 BP 116/67 10/19/24 11:26 Pulse Ox 98 10/19/24 11:26 FiO2 Intake & Output 10/18/24 10/19/24 10/19/24 18:59 06:59 18:59 Intake Total 180 180 Output Total 5 0 Balance 180 -5 180 Weight 49.895 kg 49.2 kg Intake: Oral 180 180 Output: Chest Tube Drainage 5 0 Thora-Vent Left 5 0 Other: Voiding Method Toilet Toilet # Voids 1 - Exam No acute distress, oriented 3. On room air. HEENT examination is grossly unremarkable. Mucous membranes are moist. No oral lesions. Neck supple. Full range of motion. No adenopathy thyromegaly or neck vein distention. Cardiovascular examination reveals regular rhythm rate. S1-S2 normal. No S3 or S4. No discernible murmur noted. Lungs reveal clear breath sounds. Breath sounds are equal bilaterally. No adventitious lung sounds including wheezes rhonchi or crackles. Left-sided Thora vent is noted. Subcutaneous emphysema is noted over the left chest. Abdomen soft bowel sounds are heard. No masses or tenderness. Extremities are intact. No cyanosis clubbing or edema. Skin is without rash or lesion. Neurologic examination is brief but nonfocal. - Labs CBC & Chem 7: 10/19/24 06:56 10/19/24 06:56 Assessment and Plan Assessment: Postop day #2, S/P bronchoscopy with transbronchial biopsies left upper lobe, for suspected bronchogenic carcinoma. Post-procedure left-sided pneumothorax, S/P Thora vent placement. Ongoing tobacco use with nicotine addiction. Moderate COPD with a FEV1 that 71% of predicted. Gastroesophageal reflux disease. Fibromyalgia. History of cervical cancer. History of irritable bowel syndrome. Plan: Plan dated October 18, 2024. The patient will have a follow-up chest x-ray in the morning. Cardiothoracic surgery has been consulted and will see the patient. The left lung looks fully expanded, at the current time. The patient is not having any shortness of breath. In fact, the patient is not requiring any supplemental oxygen. Labs, x-rays, and all medications are reviewed. Prognosis is certainly guarded. Biopsies will not likely be available for about 7 days. Plan dated October 19, 2024. The patient is seen again in room 366. She continues on room air. No respiratory distress. No shortness of breath. No pain. The patient has developed some subcutaneous emphysema over the left chest area. The patient does have an intermittent small leak, and a small left apical pneumothorax on chest x-ray. Labs, x-rays, and medications are reviewed. We will continue to follow. Cardiothoracic surgery is also following along. Time with Patient: Less than 30
--- NOTE | 2024-10-19 13:16 | P.PN ---
Subjective Progress Note Date: 10/19/24 Patient is a 59-year-old female with asthma and COPD with findings of left upper lobe mass and positive PET scan who presents for pneumothorax. Patient completing scheduled bronchoscopy with post scope chest x-ray findings of left upper lobe pneumothorax. She came to ER and chest tube was placed. Patient current symptoms include chest wall pain at site of chest tube placement. She reports no shortness of breath, chest pain. She is denying further symptoms at this time. Thora vent suction continues to show air leak. Labs completed in ER WBC 5.9, hemoglobin 12.7, sodium 138 potassium 4.3 BUN 8 glucose 81. Chest x-ray done independently interpreted in the ER showed left thoracotomy tube in place with mild decrease in left sided pneumothorax Spoke with the ER physician, patient admission was accepted by internal medicine service for treatment. 10/19. Patient seen and examined. Denies any shortness of breath. Denies any palpitations. REVIEW OF SYSTEMS: CONSTITUTIONAL: No fever, no malaise,. CARDIOVASCULAR: No chest pain, no palpitations, no syncope. PULMONARY: No shortness of breath, no cough, GASTROINTESTINAL: No diarrhea, no nausea, no vomiting, no abdominal pain. NEUROLOGICAL: No headaches, no weakness, PHYSICAL EXAMINATION: GENERAL: The patient is alert and oriented x3, not in any acute distress. Well developed, well nourished. HEENT: Pupils are round and equally reacting to light. EOMI. No scleral icterus. No conjunctival pallor. Normocephalic, atraumatic. No pharyngeal erythema. No thyromegaly. CARDIOVASCULAR: S1 and S2 present. No murmurs, rubs, or gallops. PULMONARY: Diminished breath sounds at the bases, chest tube seen. Subcutaneous emphysema noticeable ABDOMEN: Soft, nontender, nondistended, normoactive bowel sounds. No palpable organomegaly. MUSCULOSKELETAL: No joint swelling or deformity. EXTREMITIES: No cyanosis, clubbing, or pedal edema. NEUROLOGICAL: Gross neurological examination did not reveal any focal deficits. SKIN: No rashes. Assessment and plan # Pneumothorax, left-sided with Thora vent placement Monitor vital signs Monitor CBC Monitor CMP Aggressive bronchopulmonary hygiene Continue Thora vent Serial chest x-ray Pulmonology and CT surgery consulted Chronic Medical Conditions #COPD Resume home medications #Anxiety/Depression - Resume home medications Labs and medication were reviewed.. Continue same treatment. Continue with symptomatic treatment. Resume home medication. Monitor labs and vitals. DVT and GI prophylaxis. Further recommendations as per clinical course of the patient Dictation was produced using [employer] dictation software. please excuse any grammatical, word or spelling errors. Objective - Vital Signs Vital signs: Vital Signs Temp 98.1 F 10/19/24 08:07 Pulse 55 L 10/19/24 08:07 Resp 16 10/19/24 08:07 BP 137/62 10/19/24 08:07 Pulse Ox 98 10/19/24 08:07 FiO2 Intake & Output 10/18/24 10/19/24 10/19/24 18:59 06:59 18:59 Intake Total 180 180 Output Total 5 0 Balance 180 -5 180 Weight 49.895 kg 49.2 kg Intake: Oral 180 180 Output: Chest Tube Drainage 5 0 Thora-Vent Left 5 0 Other: Voiding Method Toilet # Voids 1 - Labs CBC & Chem 7: 10/19/24 06:56 10/19/24 06:56
--- NOTE | 2024-10-20 08:04 | P.PN ---
Subjective Progress Note Date: 10/20/24 Principal diagnosis: Left pneumothorax, status post bronchoscopy. Past medical history significant for a left upper lobe mass, PET positive, COPD, chronic ongoing tobacco dependen ce smoking 1 pack a day for the last 47 years, depression, fibromyalgia, gastroesophageal reflux disease, cervical cancer, irritable bowel syndrome, and daily marijuana use. POD #2 placement of left Thoravent by the emergency room physician The patient was seen and examined in follow-up today October 20, 2024 at her bedside on the third floor cardiac stepdown unit. She is currently sitting up to the bedside chair, is awake, alert, oriented x 3 and is in no acute apparent distress. Denies any complaints of shortness of breath at this time, although is complaining of pain to her left chest around her Thoravent site. The patient reports her pain is well-controlled with her current pain medication regimen. Left chest Thoravent remains in place to Pleur-evac with low continuous wall navarro ction -20 cm H2O. No air leak is present. Draining thin scant serosanguineous drainage. Subq. emphysema present to her left chest and back which is slightly improved today. The patient reports she has been up ambulating in the room and to the bathroom and tolerating well. Oxygen saturations are 99% on room air and she is achieving 2000 mL on her incentive spirometry with encouragement. Remote telemetry showing sinus bradycardia heart rate 51 bpm. Chest x-ray results reviewed. Objective - Vital Signs Vital signs: Vital Signs Temp 98.1 F 10/20/24 04:00 Pulse 44 L 10/20/24 04:00 Resp 16 10/20/24 04:00 BP 114/61 10/20/24 04:00 Pulse Ox 99 10/20/24 04:00 FiO2 Intake & Output 10/19/24 10/20/24 10/20/24 18:59 06:59 18:59 Intake Total 600 10 Output Total 0 4 Balance 600 -4 10 Weight 49.6 kg Intake: IV 10 Invasive Line 1 10 Oral 600 Output: Chest Tube Drainage 0 4 Thora-Vent Left 0 4 Other: Voiding Method Toilet Toilet # Voids 3 2 - Exam CONSTITUTIONAL: Appears comfortable, cooperative, no acute distress RESPIRATORY: Lungs sounds diminished bilaterally. Respirations symmetrical, nonlabored. Currently on room air with oxygen saturation 99%. Able to achieve 2000 mL on incentive spirometry. Strong cough. CARDIOVASCULAR: S1, S2 present. Regular rate and rhythm, sinus rhythm on telemetry. Palpable peripheral pulses bilaterally. No edema present. No calf pain or tenderness noted. SCDs present. GASTROINTESTINAL: Abdomen soft, nontender, nondistended. Active bowel sounds present 4 quadrants. Tolerating diet. Positive bowel movement. GENITOURINARY: Continues to void clear, yellow urine INTEGUMENTARY: Skin is warm and dry with no clubbing or cyanosis present. NEUROLOGIC: Cranial nerves II through XII intact. No focal deficits. MUSKULOSKELETAL: Able to move all extremities, strength equal bilaterally, gait normal. PSYCHIATRIC: Alert and oriented to person place and time, appropriate affect, intact judgment and insight. INVASIVE LINES AND TUBES: Left Thoravent in place connected to Pleur-evac on low continuous wall suction -20 cm H2O. no airleak present. Left Thoravent chest tube with scant thin serosanguineous drainage. - Allied health notes Allied health notes reviewed: nursing - Labs CBC & Chem 7: 10/19/24 06:56 10/19/24 06:56 - Imaging and Cardiology Chest x-ray: report reviewed, image reviewed Assessment and Plan Assessment: Left-sided pneumothorax following bronchoscopy, and transbronchial biopsies for left upper lobe lung mass, subsequent placement of left Thoravent chest tube Left upper lobe lung mass, with positive PET scan Chronic obstructive pulmonary disease Irritable bowel syndrome History of cervical cancer Fibromyalgia Gastroesophageal reflux disease Chronic ongoing tobacco dependence Daily marijuana use Plan: Continue to monitor daily chest x-rays. Continue to monitor subcutaneous emphysema. Encourage use of incentive spirometry 10 times every hour while awake. Importance of risk modification including smoking cessation has been discussed with the patient. The number for 1800quitnow will be given to the patient u delta discharge. Increase activity as tolerated. Out of bed for all meals. Pain control per current as needed orders. Continue Toradol 15 mg IV every 6 hours for pain. Left Thoravent chest tube removed from suction, Thoravent was capped. We will repeat a chest x-ray at 12 noon today to reevaluate pneumothorax. Medical management of other comorbidities per internal medicine and pulmonary/critical care service. More recommendations to follow based on patient's clinical course. Time with Patient: Greater than 30
--- NOTE | 2024-10-20 08:47 | XR ---
EXAMINATION TYPE: XR chest 1V portable DATE OF EXAM: 10/20/2024 6:50 AM COMPARISON: Chest radiographs from 10/19/2024 CLINICAL INDICATION: Female, 59 years old with history of left pneumothorax; TECHNIQUE: XR chest 1V portable Frontal view of the chest. FINDINGS: Lungs/Pleura: There is no evidence of pleural effusion, focal consolidation, or pneumothorax. Pulmonary vascularity: Unremarkable. Heart/mediastinum: Cardiomediastinal silhouette is unremarkable. Musculoskeletal: No acute osseous pathology. Other findings: Subcutaneous emphysema scattered throughout the visualized thorax. Lines/Tubes: Left thoracotomy tube is present without evidence of pneumothorax. IMPRESSION: Left thoracotomy tube with out evidence of pneumothorax. There is subcutaneous emphysema again redemo nstrated. [facility], , 10/20/2024 8:44 AM
--- NOTE | 2024-10-20 12:56 | XR ---
EXAMINATION TYPE: XR chest 1V portable DATE OF EXAM: 10/20/2024 12:49 PM COMPARISON: Chest radiographs from CLINICAL INDICATION: Female, 59 years old with history of Chest tube removed from suction, eval pneum othorax; [facility] TECHNIQUE: XR chest 1V portable Frontal view of the chest. FINDINGS: Lungs/Pleura: There is no evidence of pleural effusion, focal consolidation, or pneumothorax. Pulmonary vascularity: Unremarkable. Heart/mediastinum: Cardiomediastinal silhouette is unremarkable. Musculoskeletal: No acute osseous pathology. Other findings: Subcutaneous emphysema scattered throughout the visualized thorax. Lines/Tubes: Left thoracotomy tube is present without evidence of pneumothorax. IMPRESSION: No acute cardiopulmonary disease/process. Stable exam left thoracotomy tube no pneumothorax definitiv loco visualized evaluation limited by subcutaneous emphysema. [facility], , 10/20/2024 12:54 PM
--- NOTE | 2024-10-20 14:35 | P.PN ---
Subjective Progress Note Date: 10/20/24 59-year-old female seen today in the emergency department, room 3. The patient underwent a bronchoscopy yesterday, for a lesion in the left upper lobe. The patient sustained a left-sided pneumothorax, and was sent to the emergency department, where, Dr. Snowden placed a Thora vent. The Thora vent was hooked up to suction and a Pleur-evac, and the left lung expanded. The patient is seen in the emergency department. She is on room air. No IV fluids. Her chest x-ray this morning was much improved. Other than for some mild pain in the chest area, the patient appears to be doing relatively well. In addition to suspected bronchogenic carcinoma and underlying COPD, she has a history of irritable bowel syndrome, cervical cancer, fibromyalgia, GERD, and ongoing tobacco use with nicotine addiction. No new labs today. Chest x-ray was reviewed. Progress note dated October 19, 2024. 59-year-old female with a left-sided pneumothorax following bronchoscopy and biopsies, there is currently seen today in room 366. She is on room air. No IV fluids. She has a Thora vent and on the left side. It is connected to a Pleur- evac, she is on suction. The patient does have a intermittent leak. She has developed some subcutaneous emphysema. She has a small apical pneumothorax on the left. Clinically, she is very stable. Labs include a normal CBC, and a normal chemistry panel. Both chest x-ray today, were reviewed. On 10/20/2024, the patient has no specific complaints and the patient is currently on room air oxygen. The patient had an iatrogenic pneumothorax on the left following a bronchoscopy and transbronchial biopsies. The patient was given a Thora vent with reexpansion of the left lung. The chest x-ray from today shows no evidence of pneumothorax and the subcutaneous emphysema is also improving. Based on that, the left sided Thora vent was discontinued from wall suction. The drainage from the catheter was minimal at this point in time. The patient denies having any chest pain or shortness of breath. The patient remains on room air oxygen. Using the incentive spirometer. Hemodynamically stable. She is known to have COPD and she has chronic smoker smokes from 1 pack of cigarettes a day. She has previous history of fibromyalgia, depression, cervical cancer and irritable bowel disease. She also smokes marijuana on a daily basis. She has a left upper lobe masslike consolidation that has been PET avid. Labs from yesterday were all within normal limits. Objective - Vital Signs Vital signs: Vital Signs Temp 97.9 F 10/20/24 08:07 Pulse 58 L 10/20/24 09:20 Resp 16 10/20/24 08:16 BP 134/70 10/20/24 08:07 Pulse Ox 100 10/20/24 08:07 FiO2 Intake & Output 10/19/24 10/20/24 10/20/24 18:59 06:59 18:59 Intake Total 600 10 Output Total 0 4 Balance 600 -4 10 Weight 49.6 kg Intake: IV 10 Invasive Line 1 10 Oral 600 Output: Chest Tube Drainage 0 4 Thora-Vent Left 0 4 Other: Voiding Method Toilet Toilet Toilet # Voids 3 2 - Exam No acute distress, oriented 3. On room air. HEENT examination is grossly unremarkable. Mucous membranes are moist. No oral lesions. Neck supple. Full range of motion. No adenopathy thyromegaly or neck vein distention. Cardiovascular examination reveals regular rhythm rate. S1-S2 normal. No S3 or S4. No discernible murmur noted. Lungs reveal clear breath sounds. Breath sounds are equal bilaterally. No adve ntitious lung sounds including wheezes rhonchi or crackles. Left-sided Thora vent is noted. Subcutaneous emphysema is noted over the left chest. Abdomen soft bowel sounds are heard. No masses or tenderness. Extremities are intact. No cyanosis clubbing or edema. Skin is without rash or lesion. Neurologic examination is brief but nonfocal. - Labs CBC & Chem 7: 10/19/24 06:56 10/19/24 06:56 Assessment and Plan Plan: Iatrogenic left-sided pneumothorax post bronchoscopy and transbronchial biopsy, postop day #3. The patient was given a Thora vent and there is adequate reexpansion of the left lung. The Thora vent was taken off wall suction and repeat chest x-ray is pending for now. Left upper lobe opacity, PET avid and the patient has a masslike consolidation involving the left upper lobe. Rule out underlying malignancy. Awaiting results of the transbronchial biopsies. Ongoing tobacco use with nicotine addiction. Moderate COPD with a FEV1 that 71% of predicted. Gastroesophageal reflux disease. Fibromyalgia. History of cervical cancer. History of irritable bowel syndrome. Plan: Patient is currently on room air oxygen Thora vent was discontinued from wall suction Repeat chest x-ray May possibly remove the catheter either today or tomorrow based on the results of the follow-up chest x-ray Awaiting results of transbronchial biopsies Clinically stable Subcutaneous emphysema is improving Continue bronchodilators Continue incentive spirometer We will continue to follow
[2024-10-20] MEDS ORDERED: LORazepam 0.5 MG TAB PO PRN (15:03)
--- NOTE | 2024-10-20 16:57 | P.PN ---
Subjective Progress Note Date: 10/20/24 Patient is a 59-year-old female with asthma and COPD with findings of left upper lobe mass and positive PET scan who presents for pneumothorax. Patient completing scheduled bronchoscopy with post scope chest x-ray findings of left upper lobe pneumothorax. She came to ER and chest tube was placed. Patient current symptoms include chest wall pain at site of chest tube placement. She reports no shortness of breath, chest pain. She is denying further symptoms at this time. Thora vent suction continues to show air leak. Labs completed in ER WBC 5.9, hemoglobin 12.7, sodium 138 potassium 4.3 BUN 8 glucose 81. Chest x-ray done independently interpreted in the ER showed left thoracotomy tube in place with mild decrease in left sided pneumothorax Spoke with the ER physician, patient admission was accepted by internal medicine service for treatment. 10/19. Patient seen and examined. Denies any shortness of breath. Denies any palpitations. 10/20. Patient seen and examined. Denies any shortness of breath. Denies any palpitations. CT surgery plan to remove Thora vent pending CXR. REVIEW OF SYSTEMS: CONSTITUTIONAL: No fever, no malaise,. CARDIOVASCULAR: No chest pain, no palpitations, no syncope. PULMONARY: No shortness of breath, no cough, GASTROINTESTINAL: No diarrhea, no nausea, no vomiting, no abdominal pain. NEUROLOGICAL: No headaches, no weakness, PHYSICAL EXAMINATION: GENERAL: The patient is alert and oriented x3, not in any acute distress. Well developed, well nourished. HEENT: Pupils are round and equally reacting to light. EOMI. No scleral icterus. No conjunctival pallor. Normocephalic, atraumatic. No pharyngeal erythema. No thyromegaly. CARDIOVASCULAR: S1 and S2 present. No murmurs, rubs, or gallops. PULMONARY: Diminished breath sounds at the bases, chest tube seen. Subcutaneous emphysema noticeable ABDOMEN: Soft, nontender, nondistended, normoactive bowel sounds. No palpable organomegaly. MUSCULOSKELETAL: Crepitus over left axillary chest. No joint swelling or deformity. EXTREMITIES: No cyanosis, clubbing, or pedal edema. NEUROLOGICAL: Gross neurological examination did not reveal any focal deficits. SKIN: No rashes. Assessment and plan # Pneumothorax, left-sided with Thora vent placement Monitor vital signs Monitor CBC Monitor CMP Aggressive bronchopulmonary hygiene d/c Thora vent suction Serial chest x-ray Pulmonology and CT surgery consulted Chronic Medical Conditions #COPD Resume home medications #Anxiety/Depression - Resume home medications Labs and medication were reviewed.. Continue same treatment. Continue with symptomatic treatment. Resume home medication. Monitor labs and vitals. DVT and GI prophylaxis. Further recommendations as per clinical course of the patient Dictation was produced using [employer] dictation software. please excuse any grammatical, word or spelling errors. Objective - Vital Signs Vital signs: Vital Signs Temp 98.6 F 10/20/24 15:42 Pulse 60 10/20/24 15:42 Resp 16 10/20/24 15:42 BP 114/63 10/20/24 15:42 Pulse Ox 98 10/20/24 15:42 FiO2 Intake & Output 10/19/24 10/20/24 10/20/24 18:59 06:59 18:59 Intake Total 600 260 Output Total 0 4 Balance 600 -4 260 Weight 49.6 kg Intake: IV 20 Invasive Line 1 20 Oral 600 240 Output: Chest Tube Drainage 0 4 Thora-Vent Left 0 4 Other: Voiding Method Toilet Toilet Toilet # Voids 3 2 4 - Labs CBC & Chem 7: 10/19/24 06:56 10/19/24 06:56
[2024-10-21 07:16] LABS: HCT 38.3 % (34.0-46.0); HGB 12.6 gm/dL (11.4-16.0); MCH 30.2 pg (25.0-35.0); MCV 91.5 fL (80.0-100.0); Mean Platelet Volume 7.8; Platelet Count 204 k/uL (150-450); RBC 4.18 m/uL (3.80-5.40); RDW 15.6 % (11.5-15.5); WBC 5.6 k/uL (3.8-10.6)
--- NOTE | 2024-10-21 08:38 | XR ---
EXAMINATION TYPE: XR chest 2V DATE OF EXAM: 10/21/2024 6:23 AM COMPARISON: Chest radiograph from one day prior. CLINICAL INDICATION: Female, 59 years old with history of Left pneumothorax; [facility] TECHNIQUE: XR chest 2V Frontal and lateral views of the chest. FINDINGS: Lungs/Pleura: There is no evidence of pleural effusion, focal consolidation, or pneumothorax. Pulmonary vascularity: Unremarkable. Heart/mediastinum: Cardiomediastinal silhouette is unremarkable. Musculoskeletal: No acute osseous pathology. Other findings: Subcutaneous emphysema scattered throughout the visualized thorax. Lines/Tubes: Left thoracotomy tube is present without evidence of pneumothorax. IMPRESSION: Stable exam with left thoracotomy tube, no pneumothorax definitively visualized evaluation limited by subcutaneous emphysema. [facility], , 10/21/2024 8:36 AM
--- NOTE | 2024-10-21 09:17 | P.PN ---
Subjective Progress Note Date: 10/21/24 Principal diagnosis: Left pneumothorax, status post bronchoscopy. Past medical history significant for a left upper lobe mass, PET positive, COPD, chronic ongoing tobacco dependen ce smoking 1 pack a day for the last 47 years, depression, fibromyalgia, gastroesophageal reflux disease, cervical cancer, irritable bowel syndrome, and daily marijuana use. POD #3 placement of left Thoravent by the emergency room physician Patient was seen and examined in follow-up today October 21, 2024 at her bedside on the third floor cardiac stepdown unit. She is currently sitting up to the bedside chair, is awake, alert, oriented x 3 and is in no acute apparent distress. Denies any complaints of pain or shortness of breath at this time, reports that she can hear air leaking around her left chest Thoravent. Oxygen saturations are 98% on room air and she is achieving 2000 mL on her incentive spirometry with encouragement. Left Thoravent chest tube was removed from low continuous wall suction yesterday, and is currently capped. Intermittent airleak is present. Chest x-ray this morning shows no pneumothorax, and subcutaneous emphysema has improved. The patient reports she has been up ambulating in the hallway independently and tolerating well. Objective - Vital Signs Vital signs: Vital Signs Temp 97.9 F 10/21/24 08:27 Pulse 55 L 10/21/24 08:27 Resp 16 10/21/24 08:27 BP 156/76 10/21/24 08:27 Pulse Ox 99 10/21/24 08:27 FiO2 Intake & Output 10/20/24 10/21/24 10/21/24 18:59 06:59 18:59 Intake Total 260 20 250 Balance 260 20 250 Weight 50.1 kg Intake: IV 20 20 10 Invasive Line 1 20 20 10 Oral 240 240 Other: Voiding Method Toilet Toilet # Voids 4 1 - Exam CONSTITUTIONAL: Appears comfortable, cooperative, no acute distress RESPIRATORY: Lungs sounds diminished bilaterally. Respirations symmetrical, nonlabored. Currently on room air with oxygen saturation 98%. Able to achieve 2000 mL on incentive spirometry. Strong cough. CARDIOVASCULAR: S1, S2 present. Regular rate and rhythm, bradycardia on telemetry. Palpable peripheral pulses bilaterally. No edema present. No calf pain or tenderness noted. SCDs present. GASTROINTESTINAL: Abdomen soft, nontender, nondistended. Active bowel sounds present 4 quadrants. Tolerating diet. GENITOURINARY: Continues to void clear, yellow urine. INTEGUMENTARY: Skin is warm and dry with no clubbing or cyanosis present. NEUROLOGIC: Cranial nerves II through XII intact. No focal deficits. MUSKULOSKELETAL: Able to move all extremities, strength equal bilaterally, gait normal. PSYCHIATRIC: Alert and oriented to person place and time, appropriate affect, intact judgment and insight. INVASIVE LINES AND TUBES: Left Thoravent in place and is capped, intermittent airleak is present. No drainage. - Allied health notes Allied health notes reviewed: nursing - Labs CBC & Chem 7: 10/21/24 06:52 10/19/24 06:56 Labs: Abnormal Lab Results - Last 24 Hours (Table) 10/21/24 Range/Units 06:52 RDW 15.6 H (11.5-15.5) % - Imaging and Cardiology Chest x-ray: report reviewed, image reviewed Assessment and Plan Assessment: Left-sided pneumothorax following bronchoscopy, and transbronchial biopsies for left upper lobe lung mass, subsequent placement of left Thoravent chest tube Left upper lobe lung mass, with positive PET scan Chronic obstructive pulmonary disease Irritable bowel syndrome History of cervical cancer Fibromyalgia Gastroesophageal reflux disease Chronic ongoing tobacco dependence Daily marijuana use Plan: Continue to monitor daily chest x-rays. Continue to monitor subcutaneous emphysema. Encourage use of incentive spirometry 10 times every hour while awake. Importance of risk modification including smoking cessation has been discussed with the patient. The number for [id number] will be given to the patient upon discharge. Increase activity as tolerated. Out of bed for all meals. Pain control per current as needed orders. Continue Toradol 15 mg IV every 6 hours for pain. Keep left Thoravent chest tube in place, currently capped. Continue to monitor for airleak resolution. Medical management of other comorbidities per internal medicine and pulmonary/critical care service. More recommendations to follow based on patient's clinical course. Time with Patient: Less than 30
--- NOTE | 2024-10-21 14:40 | P.PN ---
Subjective Progress Note Date: 10/21/24 Patient is a 59-year-old female with asthma and COPD with findings of left upper lobe mass and positive PET scan who presents for pneumothorax. Patient completing scheduled bronchoscopy with post scope chest x-ray findings of left upper lobe pneumothorax. She came to ER and chest tube was placed. Patient current symptoms include chest wall pain at site of chest tube placement. She reports no shortness of breath, chest pain. She is denying further symptoms at this time. Thora vent suction continues to show air leak. Labs completed in ER WBC 5.9, hemoglobin 12.7, sodium 138 potassium 4.3 BUN 8 glucose 81. Chest x-ray done independently interpreted in the ER showed left thoracotomy tube in place with mild decrease in left sided pneumothorax Spoke with the ER physician, patient admission was accepted by internal medicine service for treatment. 10/19. Patient seen and examined. Denies any shortness of breath. Denies any palpitations. 10/20. Patient seen and examined. Denies any shortness of breath. Denies any palpitations. CT surgery plan to remove Thora vent pending CXR. 10/21. Patient seen and examined. She does have some left lateral chest wall pain, near insertion site. Reports no dyspnea. Thoravent still w/ air leak. REVIEW OF SYSTEMS: CONSTITUTIONAL: No fever, no malaise,. CARDIOVASCULAR: No chest pain, no palpitations, no syncope. PULMONARY: No shortness of breath, no cough, GASTROINTESTINAL: No diarrhea, no nausea, no vomiting, no abdominal pain. NEUROLOGICAL: No headaches, no weakness, PHYSICAL EXAMINATION: GENERAL: The patient is alert and oriented x3, not in any acute distress. Well developed, well nourished. HEENT: Pupils are round and equally reacting to light. EOMI. No scleral icterus. No conjunctival pallor. Normocephalic, atraumatic. No pharyngeal erythema. No thyromegaly. CARDIOVASCULAR: S1 and S2 present. No murmurs, rubs, or gallops. PULMONARY: Diminished breath sounds at the bases, chest tube seen. Subcutaneous emphysema noticeable ABDOMEN: Soft, nontender, nondistended, normoactive bowel sounds. No palpable organomegaly. MUSCULOSKELETAL: Crepitus over left axillary chest. No joint swelling or deformity. EXTREMITIES: No cyanosis, clubbing, or pedal edema. NEUROLOGICAL: Gross neurological examination did not reveal any focal deficits. SKIN: No rashes. Assessment and plan # Pneumothorax, left-sided with Thora vent placement Monitor vital signs Monitor CBC Monitor CMP Aggressive bronchopulmonary hygiene d/c Thora vent suction Serial chest x-ray Pulmonology and CT surgery consulted Chronic Medical Conditions #COPD Resume home medications #Anxiety/Depression - Resume home medications Labs and medication were reviewed.. Continue same treatment. Continue with symptomatic treatment. Resume home medication. Monitor labs and vitals. DVT and GI prophylaxis. Further recommendations as per clinical course of the patient Dictation was produced using [employer] dictation software. please excuse any grammatical, word or spelling errors. Objective - Vital Signs Vital signs: Vital Signs Temp 97.9 F 10/21/24 08:27 Pulse 55 L 10/21/24 08:30 Resp 16 10/21/24 08:30 BP 156/76 10/21/24 08:27 Pulse Ox 99 10/21/24 08:27 FiO2 Intake & Output 10/20/24 10/21/24 10/21/24 18:59 06:59 18:59 Intake Total 260 20 250 Balance 260 20 250 Weight 50.1 kg Intake: IV 20 20 10 Invasive Line 1 20 20 10 Oral 240 240 Other: Voiding Method Toilet Toilet Toilet # Voids 4 1 - Labs CBC & Chem 7: 10/21/24 06:52 10/19/24 06:56 Labs: Abnormal Lab Results - Last 24 Hours (Table) 10/21/24 Range/Units 06:52 RDW 15.6 H (11.5-15.5) %
--- NOTE | 2024-10-21 15:42 | XR ---
EXAMINATION TYPE: XR chest 2V DATE OF EXAM: 10/21/2024 3:34 PM COMPARISON: Chest radiographs from 10/21/2024 CLINICAL INDICATION: Female, 59 years old with history of Thoravent plug placed, evaluate for pneumot horax; TECHNIQUE: XR chest 2V Frontal and lateral views of the chest. FINDINGS: Lungs/Pleura: Left thoracotomy tube without evidence for pneumothorax. Low lung volumes are present. There is no evidence of pleural effusion, focal consolidation, or pneumothorax. Pulmonary vascularity: Unremarkable. Heart/mediastinum: Cardiomediastinal silhouette is unremarkable. Musculoskeletal: No acute osseous pathology. Subcutaneous emphysema throughout the left chest wall. IMPRESSION: Left thoracotomy device without evidence for pneumothorax. Subcutaneous emphysema throughout the left chest wall. [facility], Workstation: [facility], 10/21/2024 3:40 PM
--- NOTE | 2024-10-21 18:13 | P.PN ---
Subjective Progress Note Date: 10/21/24 59-year-old female seen today in the emergency department, room 3. The patient underwent a bronchoscopy yesterday, for a lesion in the left upper lobe. The patient sustained a left-sided pneumothorax, and was sent to the emergency department, where, Dr. Snowden placed a Thora vent. The Thora vent was hooked up to suction and a Pleur-evac, and the left lung expanded. The patient is seen in the emergency department. She is on room air. No IV fluids. Her chest x-ray this morning was much improved. Other than for some mild pain in the chest area, the patient appears to be doing relatively well. In addition to suspected bronchogenic carcinoma and underlying COPD, she has a history of irritable bowel syndrome, cervical cancer, fibromyalgia, GERD, and ongoing tobacco use with nicotine addiction. No new labs today. Chest x-ray was reviewed. Progress note dated October 19, 2024. 59-year-old female with a left-sided pneumothorax following bronchoscopy and biopsies, there is currently seen today in room 366. She is on room air. No IV fluids. She has a Thora vent and on the left side. It is connected to a Pleur- evac, she is on suction. The patient does have a intermittent leak. She has developed some subcutaneous emphysema. She has a small apical pneumothorax on the left. Clinically, she is very stable. Labs include a normal CBC, and a normal chemistry panel. Both chest x-ray today, were reviewed. On 10/20/2024, the patient has no specific complaints and the patient is currently on room air oxygen. The patient had an iatrogenic pneumothorax on the left following a bronchoscopy and transbronchial biopsies. The patient was given a Thora vent with reexpansion of the left lung. The chest x-ray from today shows no evidence of pneumothorax and the subcutaneous emphysema is also improving. Based on that, the left sided Thora vent was discontinued from wall suction. The drainage from the catheter was minimal at this point in time. The patient denies having any chest pain or shortness of breath. The patient remains on room air oxygen. Using the incentive spirometer. Hemodynamically stable. She is known to have COPD and she has chronic smoker smokes from 1 pack of cigarettes a day. She has previous history of fibromyalgia, depression, cervical cancer and irritable bowel disease. She also smokes marijuana on a daily basis. She has a left upper lobe masslike consolidation that has been PET avid. Labs from yesterday were all within normal limits. On 10/21/2024, the patient has no specific complaints. The patient is calm and comfortable and no reported cough sputum production chest tightness or wheezing. Noted the patient has a Thora vent on the left. No appreciable air leak through the Thora vent as the tube is currently capped. Based on that, along with collaboration with cardiothoracic surgery, the Serevent was completely sealed and repeat chest x-ray was done and 1542 showed no evidence of any pneumothorax and there was some residual subcutaneous emphysema involving the left chest wall. While being the Thora vent plugged, the patient experienced no worsening shortness of breath. The white cell count is 5.6 with a hemoglobin 1 2.6 and a platelet count of 204. The patient is on room air oxygen. The patient remains on albuterol nebulized treatments as needed, Symbicort as maintenance, Lovenox prophylaxis, Garrison for pain control in combination with Toradol. Objective - Vital Signs Vital signs: Vital Signs Temp 97.9 F 10/21/24 08:27 Pulse 57 L 10/21/24 11:15 Resp 16 10/21/24 11:15 BP 135/72 10/21/24 11:15 Pulse Ox 97 10/21/24 11:15 FiO2 Intake & Output 10/20/24 10/21/24 10/21/24 18:59 06:59 18:59 Intake Total 260 20 250 Balance 260 20 250 Weight 50.1 kg Intake: IV 20 20 10 Invasive Line 1 20 20 10 Oral 240 240 Other: Voiding Method Toilet Toilet Toilet # Voids 4 1 - Exam No acute distress, oriented 3. On room air. HEENT examination is grossly unremarkable. Mucous membranes are moist. No oral lesions. Neck supple. Full range of motion. No adenopathy thyromegaly or neck vein distention. Cardiovascular examination reveals regular rhythm rate. S1-S2 normal. No S3 or S4. No discernible murmur noted. Lungs reveal clear breath sounds. Breath sounds are equal bilaterally. No adventitious lung sounds including wheezes rhonchi or crackles. Left-sided Thora vent is noted. Subcutaneous emphysema is noted over the left chest. Abdomen soft bowel sounds are heard. No masses or tenderness. Extremities are intact. No cyanosis clubbing or edema. Skin is without rash or lesion. Neurologic examination is brief but nonfocal. - Labs CBC & Chem 7: 10/21/24 06:52 10/19/24 06:56 Labs: Abnormal Lab Results - Last 24 Hours (Table) 10/21/24 Range/Units 06:52 RDW 15.6 H (11.5-15.5) % Assessment and Plan Plan: Iatrogenic left-sided pneumothorax post bronchoscopy and transbronchial biopsy, postop day #4. The patient was given a Thora vent and there is adequate reexpansion of the left lung. The Thora vent is currently plugged and repeat chest x-ray from this afternoon shows no evidence of any residual pneumothorax. Subcutaneous emphysema is improving. Left upper lobe opacity, PET avid and the patient has a masslike consolidation involving the left upper lobe. Rule out underlying malignancy. Awaiting results of the transbronchial biopsies. Ongoing tobacco use with nicotine addiction. Moderate COPD with a FEV1 that 71% of predicted. Gastroesophageal reflux disease. Fibromyalgia. History of cervical cancer. History of irritable bowel syndrome. Plan: Patient is currently on room air oxygen Thora vent was plugged Repeat chest x-ray in a.m. and if there is no sizable pneumothorax, the tolerance will be discontinued Awaiting results of transbronchial biopsies Clinically stable Subcutaneous emphysema is improving Continue bronchodilators Continue incentive spirometer We will continue to follow
[2024-10-22 08:27] VITALS: RESP 16
--- NOTE | 2024-10-22 08:54 | XR ---
EXAMINATION TYPE: XR chest 2V DATE OF EXAM: 10/22/2024 7:08 AM COMPARISON: Chest radiographs from CLINICAL INDICATION: Female, 59 years old with history of Left-sided pneumothorax; [facility] TECHNIQUE: XR chest 2V Frontal and lateral views of the chest. FINDINGS: Lungs/Pleura: There is no evidence of pleural effusion, focal consolidation, or pneumothorax. Pulmonary vascularity: Unremarkable. Heart/mediastinum: Cardiomediastinal silhouette is unremarkable. Musculoskeletal: No acute osseous pathology. Other findings: Subcutaneous emphysema scattered throughout the visualized thorax. Lines/Tubes: Left thoracotomy tube is present without evidence of pneumothorax. IMPRESSION: Left thoracotomy tube no definitive pneumothorax identified. Subcutaneous emphysema limits evaluation . [facility], , 10/22/2024 8:52 AM
--- NOTE | 2024-10-22 10:05 | P.PN ---
Subjective Progress Note Date: 10/22/24 Principal diagnosis: Left pneumothorax, status post bronchoscopy. Past medical history significant for a left upper lobe mass, PET positive, COPD, chronic ongoing tobacco dependen ce smoking 1 pack a day for the last 47 years, depression, fibromyalgia, gastroesophageal reflux disease, cervical cancer, irritable bowel syndrome, and daily marijuana use. POD #4 placement of left Thoravent by the emergency room physician The patient was seen and examined this morning sitting up in bed on the cardiac stepdown unit in no acute distress. She does complain of some expected pain at her Thora-vent site, she does have some subcutaneous emphysema to the left chest wall which is painful to the touch but has not increased in size. Remains in sinus rhythm, hemodynamically stable. Currently on air with oxygen saturation in the high 90s. Able to achieve 2000 mL on incentive spirometry. Her Thora- vent was capped yesterday, essentially as if she has no chest tube in place, re peat chest x-ray completed yesterday as well as this morning were stable, Thora- vent was discontinued without incident. She has been ambulatory without incident. No other new concerns. Objective - Vital Signs Vital signs: Vital Signs Temp 97.8 F 10/22/24 08:26 Pulse 60 10/22/24 08:26 Resp 16 10/22/24 08:26 BP 107/62 10/22/24 08:26 Pulse Ox 100 10/22/24 08:26 FiO2 Intake & Output 10/21/24 10/22/24 10/22/24 18:59 06:59 18:59 Intake Total 260 20 128 Balance 260 20 128 Weight 50.2 kg Intake: IV 20 20 10 Invasive Line 1 20 20 10 Oral 240 118 Other: Voiding Method Toilet Toilet Toilet # Voids 2 2 1 - Exam CONSTITUTIONAL: Appears comfortable, cooperative, no acute distress RESPIRATORY: Lungs sounds diminished bilaterally. Respirations even, nonlabored. Currently on room air with oxygen saturation 99%. Able to achieve 2000 mL on incentive spirometry. Strong cough. CARDIOVASCULAR: S1, S2 present. Regular rate and rhythm, sinus rhythm on telemetry. Palpable peripheral pulses bilaterally. No edema present GASTROINTESTINAL: Abdomen soft, nontender, nondistended. Active bowel sounds present 4 quadrants. Tolerating diet GENITOURINARY: Continues to void INTEGUMENTARY: Skin is warm and dry NEUROLOGIC: Cranial nerves II through XII intact MUSKULOSKELETAL: Able to move all extremities, strength equal bilaterally, gait normal PSYCHIATRIC: Alert and oriented to person place and time, appropriate affect, intact judgment and insight INVASIVE LINES AND TUBES: Left chest wall Thora-vent which has been capped since yesterday was removed this morning without incident - Allied health notes Allied health notes reviewed: nursing - Labs CBC & Chem 7: 10/21/24 06:52 10/19/24 06:56 - Imaging and Cardiology Chest x-ray: report reviewed, image reviewed Assessment and Plan Assessment: Left-sided pneumothorax following bronchoscopy, and transbronchial biopsies for left upper lobe lung mass, subsequent placement of left Thoravent chest tube Left upper lobe lung mass, with positive PET scan Chronic obstructive pulmonary disease Irritable bowel syndrome History of cervical cancer Fibromyalgia Gastroesophageal reflux disease Chronic ongoing tobacco dependence Daily marijuana use Plan: Thora-vent removed without incident Will repeat chest x-ray in 2 hours, if stable patient may be discharged to home from our standpoint Continue to monitor subcutaneous emphysema, discussed with patient that it is not critical and will reabsorb on its own Encourage use of incentive spirometry 10 times every hour while awake. Importance of risk modification including smoking cessation was reinforced with the patient. The number for [id number] will be given to the patient upon discharge. Increase activity as tolerated. Out of bed for all meals. Pain control per current as needed orders Medical management of other comorbidities per internal medicine and pulmonary/critical care service. Our contact information was placed on the patient discharge plan, she may follow-up with us as needed
--- NOTE | 2024-10-22 11:15 | XR ---
EXAMINATION TYPE: XR chest 2V DATE OF EXAM: 10/22/2024 11:05 AM COMPARISON: Chest radiographs from 10/22/2024 CLINICAL INDICATION: Female, 59 years old with history of post thoravent removal; [facility] TECHNIQUE: XR chest 2V Frontal and lateral views of the chest. FINDINGS: Lungs/Pleura: There is no evidence of pleural effusion, focal consolidation, or pneumothorax. Pulmonary vascularity: Unremarkable. Heart/mediastinum: Cardiomediastinal silhouette is unremarkable. Musculoskeletal: No acute osseous pathology. Other findings: Subcutaneous emphysema scattered throughout the visualized thorax. IMPRESSION: Left thoracotomy device removal no evidence for pneumothorax. There remains subcutaneous emphysema th roughout the chest wall. [facility], , 10/22/2024 11:12 AM
[2024-10-22 12:17] VITALS: BP 125/70; PULSE 52; TEMP 97.9
--- NOTE | 2024-10-22 14:30 | P.DS ---
Providers Date of admission: 10/17/24 18:03 Expected date of discharge: 10/22/24 Attending physician: Lana Conrad Consults: 10/17/24 16:41 Consult Physician Routine Consulting Provider: Scar Madrid Consult Reason/Comments: PTX Do you want consulting provider notified?: Already Contacted 10/18/24 08:19 Consult Physician Routine Consulting Provider: Walt Last Consult Reason/Comments: Chest tube management Do you want consulting provider notified?: Already Contacted Primary care physician: Physician Nonstaff Hospital Course: Discharge diagnoses; # Pneumothorax, left-sided with Thora vent placement #COPD #Anxiety/Depression Hospital course; Patient is stable for discharge to home. Resume home medications. To follow-up with CT surgery as needed and PCP. Patient is a 59-year-old female with asthma and COPD with findings of left upper lobe mass and positive PET scan who presents for pneumothorax. Patient completing scheduled bronchoscopy with post scope chest x-ray findings of left upper lobe pneumothorax. She came to ER and chest tube was placed. Patient current symptoms include chest wall pain at site of chest tube placement. She reports no shortness of breath, chest pain. She is denying further symptoms at this time. Thora vent suction continues to show air leak. Labs completed in ER WBC 5.9, hemoglobin 12.7, sodium 138 potassium 4.3 BUN 8 glucose 81. Chest x-ray done independently interpreted in the ER showed left thoracotomy tube in place with mild decrease in left sided pneumothorax During hospital course patient treated for pneumothorax, thoravent placed and when no are leak present and no findings of pnx on CXR found, thoravent removed. Mild left chest wall crepitus observed. CXR stable with no pnx on repeat post thoravent removal. PHYSICAL EXAMINATION: GENERAL: The patient is alert and oriented x3, not in any acute distress. Well developed, well nourished. HEENT: Pupils are round and equally reacting to light. EOMI. No scleral icterus. No conjunctival pallor. Normocephalic, atraumatic. No pharyngeal erythema. No thyromegaly. CARDIOVASCULAR: S1 and S2 present. No murmurs, rubs, or gallops. PULMONARY: Diminished breath sounds at the bases, chest tube seen. Subcutaneous emphysema noticeable ABDOMEN: Soft, nontender, nondistended, normoactive bowel sounds. No palpable organomegaly. MUSCULOSKELETAL: Crepitus over left axillary chest. No joint swelling or deformity. EXTREMITIES: No cyanosis, clubbing, or pedal edema. NEUROLOGICAL: Gross neurological examination did not reveal any focal deficits. SKIN: No rashes. Dictation was produced using [employer] dictation software. please excuse any grammatical, word or spelling errors. Patient Condition at Discharge: Stable Plan - Discharge Summary Discharge Rx Participant: No New Discharge Prescriptions: Continue Sertraline [Zoloft] 50 mg PO DAILY buPROPion XL [Wellbutrin XL] 150 mg PO DAILY Albuterol Inhaler [Ventolin Hfa Inhaler] 2 puff INHALATION RT-Q4H PRN PRN Reason: Shortness Of Breath Fluticasone/Umeclidin/Vilanter [Trelegy Ellipta 200-62.5-25] 1 puff INHALATION RT-DAILY Gabapentin [Neurontin] 400 mg PO TID HYDROcodone/APAP 5-325MG [[place] 5-325] 1 tab PO TID PRN PRN Reason: Pain Sertraline [Zoloft] 100 mg PO DAILY Discharge Medication List Sertraline [Zoloft] 50 mg PO DAILY 09/19/15 [History] Albuterol Inhaler [Ventolin Hfa Inhaler] 2 puff INHALATION RT-Q4H PRN 10/15/24 [History] Fluticasone/Umeclidin/Vilanter [Trelegy Ellipta 200-62.5-25] 1 puff INHALATION RT-DAILY 10/15/24 [History] HYDROcodone/APAP 5-325MG [[place] 5-325] 1 tab PO TID PRN 10/15/24 [History] buPROPion XL [Wellbutrin XL] 150 mg PO DAILY 10/15/24 [History] Gabapentin [Neurontin] 400 mg PO TID 10/17/24 [History] Sertraline [Zoloft] 100 mg PO DAILY 10/17/24 [History] Follow up Appointment(s)/Referral(s): Walt Last MD [STAFF PHYSICIAN] - As Needed (Please follow-up in our office if there is any concerns regarding your Thora-vent insertion site) Nonstaff,Physician [Primary Care Provider] - 1-2 days Activity/Diet/Wound Care/Special Instructions: DISCHARGE INSTRUCTIONS: 1. No driving for 2 weeks, or until physician gives their ok. 2. No lifting, pushing, or pulling more than 10 pounds for 2 weeks. The physician will advise of any restriction changes. 3. Continue pain control per as needed orders. Alternate acetaminophen (Tylenol) and ibuprofen (Motrin/Advil) for pain. 4. Continue with incentive spirometry and splinting until otherwise directed by the physician. 5. Leave chest tube dressing for 48 hours. After that, remove all dressings and shower daily. 6. Routine incision care. No powders, lotions, ointments on incisions. 7. Please call surgeon/AIR PLANT ENGINEER for temp greater than 101 F or purulent drainage from incisions. 8. Smoking cessation counseling and program information provided. Quitting smoking is the most important step you can take to improve your health. For additional information and assistance to quit smoking, please call the [place] tobacco quit line (9-581-LHEC-NOW/ ) or online: [email or web address]://[email or web address]/[email or web address]-sh-[email or web address]/[email or web address]/[email or web address]-to-qu it-tobacco Discharge Disposition: HOME SELF-CARE
--- NOTE | 2024-10-22 16:19 | P.PN ---
Subjective Progress Note Date: 10/22/24 59-year-old female seen today in the emergency department, room 3. The patient underwent a bronchoscopy yesterday, for a lesion in the left upper lobe. The patient sustained a left-sided pneumothorax, and was sent to the emergency department, where, Dr. Snowden placed a Thora vent. The Thora vent was hooked up to suction and a Pleur-evac, and the left lung expanded. The patient is seen in the emergency department. She is on room air. No IV fluids. Her chest x-ray this morning was much improved. Other than for some mild pain in the chest area, the patient appears to be doing relatively well. In addition to suspected bronchogenic carcinoma and underlying COPD, she has a history of irritable bowel syndrome, cervical cancer, fibromyalgia, GERD, and ongoing tobacco use with nicotine addiction. No new labs today. Chest x-ray was reviewed. Progress note dated October 19, 2024. 59-year-old female with a left-sided pneumothorax following bronchoscopy and biopsies, there is currently seen today in room 366. She is on room air. No IV fluids. She has a Thora vent and on the left side. It is connected to a Pleur- evac, she is on suction. The patient does have a intermittent leak. She has developed some subcutaneous emphysema. She has a small apical pneumothorax on the left. Clinically, she is very stable. Labs include a normal CBC, and a normal chemistry panel. Both chest x-ray today, were reviewed. On 10/20/2024, the patient has no specific complaints and the patient is currently on room air oxygen. The patient had an iatrogenic pneumothorax on the left following a bronchoscopy and transbronchial biopsies. The patient was given a Thora vent with reexpansion of the left lung. The chest x-ray from today shows no evidence of pneumothorax and the subcutaneous emphysema is also improving. Based on that, the left sided Thora vent was discontinued from wall suction. The drainage from the catheter was minimal at this point in time. The patient denies having any chest pain or shortness of breath. The patient remains on room air oxygen. Using the incentive spirometer. Hemodynamically stable. She is known to have COPD and she has chronic smoker smokes from 1 pack of cigarettes a day. She has previous history of fibromyalgia, depression, cervical cancer and irritable bowel disease. She also smokes marijuana on a daily basis. She has a left upper lobe masslike consolidation that has been PET avid. Labs from yesterday were all within normal limits. On 10/21/2024, the patient has no specific complaints. The patient is calm and comfortable and no reported cough sputum production chest tightness or wheezing. Noted the patient has a Thora vent on the left. No appreciable air leak through the Thora vent as the tube is currently capped. Based on that, along with collaboration with cardiothoracic surgery, the Serevent was completely sealed and repeat chest x-ray was done and 1542 showed no evidence of any pneumothorax and there was some residual subcutaneous emphysema involving the left chest wall. While being the Thora vent plugged, the patient experienced no worsening shortness of breath. The white cell count is 5.6 with a hemoglobin 1 2.6 and a platelet count of 204. The patient is on room air oxygen. The patient remains on albuterol nebulized treatments as needed, Symbicort as maintenance, Lovenox prophylaxis, [place] for pain control in combination with Toradol. On 10/22/2024, the patient for event has been removed. Follow-up chest x-ray was done after the removal and there is no evidence of any pneumothorax. There is some residual subcutaneous emphysema along the left chest wall. The patient is doing well. No specific complaints. No chest pain. No pleurisy. No hemoptysis. Transbronchial biopsies of the left upper lobe was nondiagnostic for malignancy. In addition, the lavage and brush was also negative for ma lignancy. Microbial cultures are negative for bacteria, AFB stains are still pending. The patient has no specific complaints. Hemodynamically stable. Objective - Vital Signs Vital signs: Vital Signs Temp 97.8 F 10/22/24 08:26 Pulse 60 10/22/24 08:26 Resp 16 10/22/24 08:26 BP 107/62 10/22/24 08:26 Pulse Ox 100 10/22/24 08:26 FiO2 Intake & Output 10/21/24 10/22/24 10/22/24 18:59 06:59 18:59 Intake Total 260 20 128 Balance 260 20 128 Weight 50.2 kg Intake: IV 20 20 10 Invasive Line 1 20 20 10 Oral 240 118 Other: Voiding Method Toilet Toilet Toilet # Voids 2 2 1 - Exam No acute distress, oriented 3. On room air. HEENT examination is grossly unremarkable. Mucous membranes are moist. No oral lesions. Neck supple. Full range of motion. No adenopathy thyromegaly or neck vein distention. Cardiovascular examination reveals regular rhythm rate. S1-S2 normal. No S3 or S4. No discernible murmur noted. Lungs reveal clear breath sounds. Breath sounds are equal bilaterally. No adventitious lung sounds including wheezes rhonchi or crackles. Left-sided Thora vent is noted. Subcutaneous emphysema is noted over the left chest. Abdomen soft bowel sounds are heard. No masses or tenderness. Extremities are intact. No cyanosis clubbing or edema. Skin is without rash or lesion. Neurologic examination is brief but nonfocal. - Labs CBC & Chem 7: 10/21/24 06:52 10/19/24 06:56 Assessment and Plan Plan: Iatrogenic left-sided pneumothorax post bronchoscopy and transbronchial biopsy, The patient was given a Thora vent and there is adequate reexpansion of the left lung. Thora vent was discontinued today and the follow-up chest x-ray shows no evidence of any pneumothorax Left upper lobe opacity, PET avid and the patient has a masslike consolidation involving the left upper lobe. Rule out underlying malignancy. Transbronchial biopsies were nondiagnostic. Lavage results are still pending Ongoing tobacco use with nicotine addiction. Moderate COPD with a FEV1 that 71% of predicted. Gastroesophageal reflux disease. Fibromyalgia. History of cervical cancer. History of irritable bowel syndrome. Plan: Patient is currently on room air oxygen Thora vent was removed Repeat chest x-ray in a.m. shows no evidence of pneumothorax Transbronchial biopsies are negative for malignancy Clinically stable Subcutaneous emphysema is improving Continue bronchodilators Continue incentive spirometer Discharge home today to be followed up by pulmonary on outpatient basis
== END 2024-10-22 15:52 | disposition home or self-care (01) | DRG 143 ==
LOC: EC 13:47 → 3SCARD 18:03
PROVIDERS: ADMIT Hospitalist; ATTEND Hospitalist
PROC: 0W9B30Z Drainage of Left Pleural Cavity with Drainage Device, Percutaneous Approach (ICD-10-PCS; principal; 2024-10-17)
DX: J95.811 Postprocedural pneumothorax (principal); J44.89 Other specified chronic obstructive pulmonary disease; F32.A Depression, unspecified; F41.9 Anxiety disorder, unspecified; K21.9 Gastro-esophageal reflux disease without esophagitis; F17.210 Nicotine dependence, cigarettes, uncomplicated; M79.7 Fibromyalgia; T79.7XXA Traumatic subcutaneous emphysema, initial encounter; K58.9 Irritable bowel syndrome, unspecified; Z88.0 Allergy status to penicillin; Z79.899 Other long term (current) drug therapy; Z85.41 Personal history of malignant neoplasm of cervix uteri; Z91.09 Other allergy status, other than to drugs and biological substances
CPT/HCPCS: 36415; 71045; 71046; 80048; 80053; 85025; 85027; 85610; 85730; 94640; 96374; 96375; 99285

== ENCOUNTER → 2024-11-11 | Outpatient (CLI) | payer OTHER ==
--- NOTE | 2024-11-11 14:28 | CT ---
EXAMINATION TYPE: CT chest w con DATE OF EXAM: 11/11/2024 COMPARISON: Prior chest CT July 18, 2024 and older study September 07, 2023. PET/CT September 26 024 HISTORY: F/U on pulmonary nodule CT DLP: 181.8 mGycm. Automated Exposure Control for Dose Reduction was Utilized. TECHNIQUE: CT scan of the thorax is performed following with IV Contrast, patient injected with 100 mL of Isovue 300. FINDINGS: LUNGS: Moderate Biapical pleural/parenchymal scarring is redemonstrated. Moderate to advanced underly ing emphysematous change is redemonstrated. Persistent left upper lobe curvilinear masslike consolida tion posterior medial aspect. There is however new more suspicious mass extending anteriorly and late ral to this axial image 13 measuring 4.8 x 2.6 cm. Findings correlate with most recent PET/CT. Correl ate with bronchoscopy findings from October. No new greater than 6 mm pulmonary nodules otherwise. N o pleural effusion or pneumothorax seen. MEDIASTINUM: There are no greater than 1 cm hilar or mediastinal lymph nodes. No cardiomegaly or pe ricardial effusion is seen. OTHER: No additional significant abnormality is seen. IMPRESSION: Moderate to advanced emphysematous change with persistent suspicious left upper lobe mass worrisome for neoplasm. No significant change from most recent prior PET/CT. Clinical correlation ad vised. [facility], , 11/11/2024 2:26 PM
== END | disposition home or self-care (01) ==
LOC: RADCTMAIN 11:07
PROVIDERS: ATTEND Internal Medicine Critical Care Medicine
DX: J43.9 Emphysema, unspecified (principal); R91.1 Solitary pulmonary nodule
CPT/HCPCS: 71260; Q9967

== ENCOUNTER → 2024-11-27 | Outpatient (CLI) | payer OTHER ==
--- NOTE | 2024-11-27 11:47 | XR ---
EXAMINATION TYPE: XR hand complete RT DATE OF EXAM: 11/27/2024 11:08 AM COMPARISON: None CLINICAL INDICATION: Female, 59 years old with history of M19.049 PRIMARY OSTEOARTHRITIS; PHH, pain TECHNIQUE: XR hand complete RT 3 views were obtained. FINDINGS: Normal alignment of the visualized joints. No acute osseous pathology is identified. No e vidence of soft tissue swelling. Multifocal degeneration changes with joint space narrowing and osteo phyte formation. Findings are more focal and more moderate at the second digit distal and [place] join t. IMPRESSION: 1. No acute osseous pathology. 2. Mild osteoarthrosis throughout the joints of the hand findings more moderate at the second digit distal and phalangeal joint. [facility], , 11/27/2024 11:45 AM
[2024-11-27 15:54] LABS: Basophils # (A) 0.03 X 10*3/uL (0.00-0.10); Basophils % (A) 0.4 %; Eosinophils # (A) 0.12 X 10*3/uL (0.04-0.35); Eosinophils % (A) 1.6 %; HCT 40.9 % (37.2-46.3); HGB 13.7 g/dL (12.0-15.0); Lymphocytes % (A) 26.1 %; MCH 29.7 pg (27.0-32.0); MCHC 33.5 g/dL (32.0-37.0); MCV 88.5 FL (80.0-97.0); Monocytes # (A) 0.39 X 10*3/uL (0.20-1.00); Monocytes % (A) 5.1 %; NRBC Per 100 WBC 0 X 10*3/uL (0.00-0.01); Neutrophils # (A) 5.09 X 10*3/uL (1.80-7.70); Neutrophils % (A) 66.4 %; Platelet Count 224 X 10*3/uL (140-440); RBC 4.62 X 10*6/uL (4.10-5.20); RDW 15.7 % (11.5-14.5); WBC 7.66 X 10*3/uL (4.50-10.00)
[2024-11-27 16:14] LABS: Erythrocyte Sedimentation Rate 18 mm/Hr (0-30)
[2024-11-27 18:14] LABS: ALT 11 U/L (8-44); AST 16 U/L (13-35); Albumin 4.5 g/dL (3.8-4.9); Albumin/Globulin Ratio 1.73 Ratio (1.60-3.17); Alkaline Phosphatase 103 U/L (41-126); BUN/Creat Ratio 12.11 Ratio (12.00-20.00); Blood Urea Nitrogen 10.9 mg/dL (9.0-27.0); Calcium 9.9 mg/dL (8.7-10.3); Carbon Dioxide 24.8 mmol/L (21.6-31.8); Chloride 103 mmol/L (96-109); Chol/HDL Ratio 5.98 Ratio; Globulin 2.6 g/dL (1.6-3.3); Glucose 92 mg/dL (70-110); LDL Cholesterol,Calculated 221.6 mg/dL (0.0-131.0); Potassium 4.7 mmol/L (3.5-5.5); Rheumatoid Factor, Qnt <15 IU/mL (0-15); Sodium 142 mmol/L (135-145); T4, Free (Free Thyroxine) 0.98 ng/dL (0.80-1.80); Total Bilirubin <0.2 mg/dL (0.3-1.2); Total Protein 7.1 g/dL (6.2-8.2)
[2024-11-28 18:51] LABS: ANA Pattern Homogenous
== END | disposition home or self-care (01) ==
LOC: LABWHC1 10:38
PROVIDERS: ATTEND Student in an Organized Health Care Education/Training Program
DX: M19.041 Primary osteoarthritis, right hand (principal); N18.2 Chronic kidney disease, stage 2 (mild); E78.5 Hyperlipidemia, unspecified; F41.1 Generalized anxiety disorder
CPT/HCPCS: 36415; 80053; 80061; 84439; 84443; 85025; 85652; 86038; 86039; 86431

== ENCOUNTER → 2025-01-16 | Outpatient (CLI) | payer OTHER ==
[2025-01-16 15:15] LABS: ALT 6 U/L (8-44); AST 19 U/L (13-35); Albumin/Globulin Ratio 1.54 Ratio (1.60-3.17); Alkaline Phosphatase 96 U/L (41-126); Bilirubin, Conjugated <0.20 mg/dL (0.20-0.40); Bilirubin,Unconjugated >0.10 mg/dL (0.20-1.00); Globulin 2.6 g/dL (1.6-3.3); Total Bilirubin 0.3 mg/dL (0.3-1.2); Total Protein 6.6 g/dL (6.2-8.2)
== END | disposition home or self-care (01) ==
LOC: LABWHC1 10:45
PROVIDERS: ATTEND Internal Medicine Critical Care Medicine
DX: A31.0 Pulmonary mycobacterial infection (principal); Z79.899 Other long term (current) drug therapy
CPT/HCPCS: 36415; 80076

== ENCOUNTER 2025-04-02 10:32 | Emergency (ER) | payer OTHER ==
[2025-04-02 10:54] VITALS: TEMP 98
[2025-04-02 11:27] VITALS: PULSE 86; RESP 18
[2025-04-02] MEDS: MORPHINE SULFATE 4 MG/ML SYRINGE IVP STA (12:12)
[2025-04-02 12:22] LABS: Basophils # (A) 0.01 10*3/uL (0.00-0.10); Basophils % (A) 0.1 %; Eosinophils # (A) 0.12 10*3/uL (0.04-0.35); Eosinophils % (A) 1.7 %; HCT 33.8 % (37.2-46.3); HGB 11.7 g/dL (12.0-15.0); Lymphocytes # (A) 1.82 10*3/uL (0.90-5.00); Lymphocytes % (A) 25.2 %; MCH 32.8 pg (27.0-32.0); MCHC 34.6 g/dL (32.0-37.0); MCV 94.7 fL (80.0-97.0); Mean Platelet Volume 10.7 fL (9.5-12.2); Monocytes % (A) 6.9 %; Neutrophils # (A) 4.74 10*3/uL (1.80-7.70); Neutrophils % (A) 65.8 %; Platelet Count 190 10*3/uL (140-440); RBC 3.57 10*6/uL (4.10-5.20); RDW 14.1 % (11.5-14.5); WBC 7.21 10*3/uL (4.50-10.00)
[2025-04-02 12:38] LABS: ALT 11 U/L (4-34); AST 21 U/L (14-36); African American GFR (CKD) >90 (>60 ml/min/1.73 sqM); Albumin 3.9 g/dL (3.5-5.0); Alkaline Phosphatase 71 U/L (38-126); Anion Gap 7 mmol/L; Blood Urea Nitrogen 10 mg/dL (7-17); Calcium 9.4 mg/dL (8.4-10.2); Carbon Dioxide 28 mmol/L (22-30); Chloride 103 mmol/L (98-107); Glucose 83 mg/dL (74-99); Lipase 46 U/L (23-300); Magnesium 1.9 mg/dL (1.6-2.3); Non-African American GFR(CKD) >90 (>60 ml/min/1.73 sqM); Potassium 4.3 mmol/L (3.5-5.1); Sodium 138 mmol/L (137-145); Total Bilirubin 0.3 mg/dL (0.2-1.3); Total Protein 6.5 g/dL (6.3-8.2)
[2025-04-02 12:50] LABS: Partial Thromboplastin Time 24.9 sec (22.0-30.0); Prothrombin Time 11.2 sec (10.0-12.5)
--- NOTE | 2025-04-02 13:12 | CT ---
EXAMINATION TYPE: CT chest without contrast CT angio chest DATE OF EXAM: 04/02/2025 12:44 PM COMPARISON: 11/11/2024. CLINICAL INDICATION: Female, 59 years old with history of intrascapular back pain; BACK PAIN TECHNIQUE/CONTRAST: And initial noncontrast CT of the chest with coronal and sagittal reconstructions. Subsequent CTA scan of the thorax is performed with IV Contrast, patient injected with 100 mL of Isov ue 370, 3D reconstructed images are created on an independent workstation and reviewed.. CT DLP: 496.6 mGycm, Automated exposure control for dose reduction was used. FINDINGS: Heart normal size without pericardial effusion. No flattening of the interventricular septum refluxin g contrast into the hepatic veins. Initial noncontrast images show no evidence for acute intramural hematoma. Aorta is normal caliber without evidence for aortic dissection. Bovine configuration to the aortic ar ch. No evidence for aortic dissection. AP window lymph node measures 7 mm similar from earlier in the year. Right hilar lymph node measures 1.5 cm all versus 1.4 cm, previously, not significant changed. Satisfactory opacification of the pulmonary arterial system. There is no evidence for pulmonary embol us. Moderate emphysematous change. Fairly advanced emphysema and the upper lungs. Focal irregular opacity left upper lobe persists. The main bulk of the opacity measures 4.1 x 2.2 cm versus 5.2 x 3.0 cm, previously. Slightly smaller. However, extensive opacity persists. New 6 mm nodule right midlung field with some suspicion. No pleural effusion. Visualized upper abdomen shows [id number] atherosclerotic calcifications. Bones: No osseous destructive process. IMPRESSION: 1. No evidence for aortic dissection, aneurysm, or pulmonary embolus. 2. COPD with moderate to advanced emphysema. Large irregular opacity left upper lobe persists though slightly smaller at 4.1 x 2.2 cm versus 5.2 x 3.0 cm, previously. Either neoplasm or atypical infecti on. Correlate for any known diagnosis and with appropriate follow-up/management. 3. There is a new 6 mm nodule at the right midlung which is viewed with some suspicion. An early prim mikayla lung cancer is not excluded at this time. [facility], , 04/02/2025 1:10 PM
--- NOTE | 2025-04-02 14:20 | ED ---
General Adult HPI - General Chief complaint: Back Pain/Injury Stated complaint: L shoulder pain Time Seen by Provider: 04/02/25 10:55 Source: patient Mode of arrival: ambulatory Limitations: no limitations - History of Present Illness Initial comments: 59-year-old female presents to the emergency department reporting pain between her shoulder blades. States that it started 3 days ago and is described as a sharp shooting sensation which radiates through to her anterior chest. The pain is reproducible with different positioning. She does admit to some shortness of breath. She denies any numbness, tingling or weakness in her extremities. No dizziness or ataxia. She denies fevers, chills or cough. No abdominal pain. No changes in her bowel or bladder habits. No other alleviating, precipitating modifying factors - Related Data Home Medications Medication Instructions Recorded Confirmed Albuterol Inhaler [Ventolin Hfa 2 puff INHALATION RT-Q4H PRN 10/15/24 12/04/24 Inhaler] Fluticasone/Umeclidin/Vilanter 1 puff INHALATION RT-DAILY 10/15/24 12/04/24 [Trelegy Ellipta 200-62.5-25] HYDROcodone/APAP 5-325MG [[place] 1 tab PO TID PRN 10/15/24 12/04/24 5-325] buPROPion XL [Wellbutrin XL] 150 mg PO DAILY 10/15/24 12/04/24 Gabapentin [Neurontin] 400 mg PO TID 10/17/24 12/04/24 Sertraline [Zoloft] 100 mg PO DAILY 10/17/24 12/04/24 Ibuprofen [Motrin] 800 mg PO Q8H PRN 11/27/24 12/04/24 Previous Rx's Medication Instructions Recorded Ondansetron Odt [Zofran Odt] 4 mg PO Q8HR PRN #14 tab 04/22/25 Allergies Allergy/AdvReac Type Severity Reaction Status Date / Time monosodium glutamate [MSG] Allergy Dyspnea Verified 04/22/25 18:01 Penicillins Allergy Dyspnea Verified 04/22/25 18:01 Review of Systems ROS Statement: Those systems with pertinent positive or pertinent negative responses have been documented in the HPI. ROS Other: All systems not noted in ROS Statement are negative. 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 History of Any Multi-Drug Resistant Organisms: None Reported Past Surgical History: Orthopedic Surgery Additional Past Surgical History / Comment(s): colonoscopy, EGD, right knee fatty tumour removed, surgery for cervical cancer Past Anesthesia/Blood Transfusion Reactions: No Reported Reaction Additional Past Anesthesia/Blood Transfusion Reaction / Comment(s): no blood transfusion Past Psychological History: Depression Smoking Status: Current every day smoker, Vaper - Past Family History Mother Family Medical History: Hypertension General Exam Limitations: no limitations General appearance: alert, in no apparent distress Head exam: Present: atraumatic, normocephalic, normal inspection Eye exam: Present: normal appearance, PERRL, EOMI. Absent: scleral icterus, conjunctival injection, periorbital swelling ENT exam: Present: normal exam, mucous membranes moist Neck exam: Present: normal inspection. Absent: tenderness, meningismus, lymphadenopathy Respiratory exam: Present: normal lung sounds bilaterally. Absent: respiratory distress, wheezes, rales, rhonchi, stridor Cardiovascular Exam: Present: regular rate, normal rhythm, normal heart sounds. Absent: systolic murmur, diastolic murmur, rubs, gallop, clicks GI/Abdominal exam: Present: soft, normal bowel sounds. Absent: distended, tenderness, guarding, rebound, rigid Extremities exam: Present: normal inspection, full ROM, normal capillary refill. Absent: tenderness, pedal edema, joint swelling, calf tenderness Back exam: Present: tenderness (To palpation of the paraspinal muscles in between the bilateral scapula) Neurological exam: Present: alert, oriented X3, CN II-XII intact Psychiatric exam: Present: normal affect, normal mood Skin exam: Present: warm, dry, intact, normal color. Absent: rash Course Vital Signs 04/02/25 04/02/25 04/02/25 10:51 11:25 14:28 Temperature 98 F Pulse Rate 57 L 86 Respiratory 20 18 18 Rate Blood Pressure 118/60 104/64 Blood Pressure 100/55 [Right Arm] O2 Sat by Pulse 99 97 99 Oximetry Medical Decision Making - Medical Decision Making Was pt. sent in by a medical professional or institution (, PA, CORNICE MAKER, urgent care, hospital, or penitentiary...) When possible be specific @ -No Did you speak to anyone other than the patient for history (EMS, parent, family, police, friend...)? What history was obtained from this source @ -No Did you review nursing and triage notes (agree or disagree)? Why? @ -I reviewed and agree with nursing and triage notes Were old charts reviewed (outside hosp., previous admission, EMS record, old EKG, old radiological studies, urgent care reports/EKG's, penitentiary records)? Report findings @ -No old charts were reviewed Differential Diagnosis (chest pain, altered mental status, abdominal pain women, abdominal pain men, vaginal bleeding, weakness, fever, dyspnea, syncope, headache, dizziness, GI bleed, back pain, seizure, CVA, palpatations, mental health, musculoskeletal)? @ -Differential Back Pain: Strain, zoster, cauda equina syndrome, epidural abscess, vertebral osteomyeli tis, discitis, fracture, subluxation, disc herniation, DJD, spinal stenosis, dissection, AAA, pancreatitis, peptic ulcer disease, pyelonephritis, kidney stone, this is not meant to be an all-inclusive list. EKG interpreted by me (3pts min.). @ -Yes and demonstrate sinus bradycardia with rate of 50. MT interval 142. QRS 86. QTc of 397. No acute ST segment elevations or depressions X-rays interpreted by me (1pt min.). @ -None done CT interpreted by me (1pt min.). @ -Yes which demonstrates known lung infection U/S interpreted by me (1pt. min.). @ -None done What testing was considered but not performed or refused? (CT, X-rays, U/S, labs)? Why? @ -Echo however patient does not want to be admitted What meds were considered but not given or refused? Why? @ -None Did you discuss the management of the patient with other professionals (professionals i.e. , PA, CORNICE MAKER, lab, RT, psych nurse, social work supervisor, embryology teacher, teacher, dog control officer, case making machine operator)? Give summary @ -No Was smoking cessation discussed for >3mins.? @ -No Was critical care preformed (if so, how long)? @ -No Were there social determinants of health that impacted care today? How? (Homelessness, low income, unemployed, alcoholism, drug addiction, transportation, low edu. Level, literacy, decrease access to med. care, halfway, rehab)? @ -No Was there de-escalation of care discussed even if they declined (Discuss DNR or withdrawal of care, Hospice)? DNR status @ -No What co-morbidities impacted this encounter? (DM, HTN, Smoking, COPD, CAD, Cancer, CVA, ARF, Chemo, Hep., AIDS, mental health diagnosis, sleep apnea, morbid obesity)? @ -Lung infection Was patient admitted / discharged? Hospital course, mention meds given and route, prescriptions, significant lab abnormalities, going to OR and other pertinent info. @ -Upon arrival patient seen and evaluated in room 19. Thorough history and physical exam was performed. Patient placed on continuous pulse ox and cardiac monitoring. Twelve-lead EKG is obtained. Patient administered pain medications. She does go for CT which does not demonstrate dissection, aneurysm. Patient does have known lung infection which was treated. I discussed results with the patient. I recommended admission however patient does not want to stay. Patient would like to go home and follow-up with her primary care doctor. I did inform her of the limitations of workup in the emergency department for which she understood but still continued to want to leave. She will follow-up with her primary care doctor within the next 1 to 2 days. Return for any new or worsening symptoms. Patient agrees with plan she was discharged in stable condition Undiagnosed new problem with uncertain prognosis? @ -Yes Drug Therapy requiring intensive monitoring for toxicity (Heparin, Nitro, Insulin, Cardizem)? @ -No Were any procedures done? @ -No Diagnosis/symptom? @ -Acute intrascapular back pain Acute, or Chronic, or Acute on Chronic? @ -Acute Uncomplicated (without systemic symptoms) or Complicated (systemic symptoms)? @ -Complicated Side effects of treatment? @ -No Exacerbation, Progression, or Severe Exacerbation? @ -No Poses a threat to life or bodily function? How? (Chest pain, [place], [place], pneumonia, PE, COPD, DKA, ARF, appy, cholecystitis, CVA, Diverticulitis, Homicidal, Suicidal, threat to staff... and all critical care pts) @ -Possibly as we are unsure of the etiology of her pain - Lab Data Result diagrams: 04/02/25 12:08 04/02/25 12:08 Lab Results 04/02/25 04/02/25 04/02/25 Range/Units 12:08 12:08 12:08 WBC 7.21 (4.50-10.00) 10*3/uL RBC 3.57 L (4.10-5.20) 10*6/uL Hgb 11.7 L (12.0-15.0) g/dL Hct 33.8 L (37.2-46.3) % MCV 94.7 (80.0-97.0) fL MCH 32.8 H (27.0-32.0) pg MCHC 34.6 (32.0-37.0) g/dL Plt Count 190 (140-440) 10*3/uL MPV 10.7 (9.5-12.2) fL Immature Gran % (Auto) 0.3 % Neutrophils % 65.8 % Lymphocytes % 25.2 % Monocytes % 6.9 % Eosinophils % 1.7 % Basophils % 0.1 % Immature Gran # 0.02 (0.00-0.04) 10*3/uL Neutrophils # 4.74 (1.80-7.70) 10*3/uL Lymphocytes # 1.82 (0.90-5.00) 10*3/uL Monocytes # 0.50 (0.20-1.00) 10*3/uL Eosinophils # 0.12 (0.04-0.35) 10*3/uL Basophils # 0.01 (0.00-0.10) 10*3/uL PT 11.2 (10.0-12.5) sec INR 1.0 (<1.2) APTT 24.9 (22.0-30.0) sec D-Dimer 0.73 H (<0.60) mg/L FEU Sodium 138 (137-145) mmol/L Potassium 4.3 (3.5-5.1) mmol/L Chloride 103 (98-107) mmol/L Carbon Dioxide 28 (22-30) mmol/L Anion Gap 7 mmol/L BUN 10 (7-17) mg/dL Creatinine 0.66 (0.52-1.04) mg/dL Est GFR (CKD-EPI)AfAm >90 (>60 ml/min/1.73 sqM) Est GFR (CKD-EPI)NonAf >90 (>60 ml/min/1.73 sqM) Glucose 83 (74-99) mg/dL Calcium 9.4 (8.4-10.2) mg/dL Magnesium 1.9 (1.6-2.3) mg/dL Total Bilirubin 0.3 (0.2-1.3) mg/dL AST 21 (14-36) U/L ALT 11 (4-34) U/L Alkaline Phosphatase 71 (38-126) U/L Troponin I (0.000-0.034) ng/mL Total Protein 6.5 (6.3-8.2) g/dL Albumin 3.9 (3.5-5.0) g/dL Lipase 46 (23-300) U/L / Range/Units 12:08 WBC (4.50-10.00) 10*3/uL RBC (4.10-5.20) 10*6/uL Hgb (12.0-15.0) g/dL Hct (37.2-46.3) % MCV (80.0-97.0) fL MCH (27.0-32.0) pg MCHC (32.0-37.0) g/dL Plt Count (140-440) 10*3/uL MPV (9.5-12.2) fL Immature Gran % (Auto) % Neutrophils % % Lymphocytes % % Monocytes % % Eosinophils % % Basophils % % Immature Gran # (0.00-0.04) 10*3/uL Neutrophils # (1.80-7.70) 10*3/uL Lymphocytes # (0.90-5.00) 10*3/uL Monocytes # (0.20-1.00) 10*3/uL Eosinophils # (0.04-0.35) 10*3/uL Basophils # (0.00-0.10) 10*3/uL PT (10.0-12.5) sec INR (<1.2) APTT (22.0-30.0) sec D-Dimer (<0.60) mg/L FEU Sodium (137-145) mmol/L Potassium (3.5-5.1) mmol/L Chloride (98-107) mmol/L Carbon Dioxide (22-30) mmol/L Anion Gap mmol/L BUN (7-17) mg/dL Creatinine (0.52-1.04) mg/dL Est GFR (CKD-EPI)AfAm (>60 ml/min/1.73 sqM) Est GFR (CKD-EPI)NonAf (>60 ml/min/1.73 sqM) Glucose (74-99) mg/dL Calcium (8.4-10.2) mg/dL Magnesium (1.6-2.3) mg/dL Total Bilirubin (0.2-1.3) mg/dL AST (14-36) U/L ALT (4-34) U/L Alkaline Phosphatase (38-126) U/L Troponin I <0.012 (0.000-0.034) ng/mL Total Protein (6.3-8.2) g/dL Albumin (3.5-5.0) g/dL Lipase (23-300) U/L Disposition Clinical Impression: Chest pain Disposition: HOME SELF-CARE Condition: Stable Instructions (If sedation given, give patient instructions): Chest Pain (ED) Additional Instructions: Please follow-up with your primary care doctor within the next 2 days so they can reevaluate your symptoms. I did recommend hospital admission. If your pain returns or you have worsening symptoms, please return to the emergency department Is patient prescribed a controlled substance at d/c from ED?: No Referrals: Polo Qureshi DO [Primary Care Provider] - 1-2 days Time of Disposition: 14:20
[2025-04-02 14:29] VITALS: BP 100/55
== END 2025-04-02 14:28 | disposition home or self-care (01) ==
LOC: EC 10:32
DX: R07.9 Chest pain, unspecified (principal); F17.290 Nicotine dependence, other tobacco product, uncomplicated; Z88.0 Allergy status to penicillin; Z88.8 Allergy status to other drugs, medicaments and biological substances
CPT/HCPCS: 36415; 93005; 85379; 80053; 83690; 83735; 84484; 85025; 85610; 85730; 71275; 99284; 96374; J2270; Q9967

== ENCOUNTER 2025-04-22 17:54 | Emergency (ER) | payer OTHER ==
[2025-04-22 18:02] VITALS: TEMP 97.8
[2025-04-22] MEDS: ONDANSETRON 4 MG/2 ML VIAL IVP STA (19:42)
[2025-04-22] MEDS: SODIUM CHLORIDE 0.9% 1,000 ML IV STA (19:42)
[2025-04-22 19:59] LABS: Basophils # (A) 0.01 10*3/uL (0.00-0.10); Basophils % (A) 0.1 %; HCT 36.1 % (37.2-46.3); HGB 12.6 g/dL (12.0-15.0); Lymphocytes # (A) 0.63 10*3/uL (0.90-5.00); Lymphocytes % (A) 6.8 %; MCH 31.4 pg (27.0-32.0); MCHC 34.9 g/dL (32.0-37.0); Mean Platelet Volume 9.6 fL (9.5-12.2); Monocytes # (A) 0.12 10*3/uL (0.20-1.00); Monocytes % (A) 1.3 %; Neutrophils # (A) 8.49 10*3/uL (1.80-7.70); Neutrophils % (A) 91.4 %; Platelet Count 227 10*3/uL (140-440); RBC 4.01 10*6/uL (4.10-5.20); RDW 12.8 % (11.5-14.5); WBC 9.29 10*3/uL (4.50-10.00)
--- NOTE | 2025-04-22 20:02 | ED ---
Nausea/Vomiting/Diarrhea HPI - General Chief complaint: Nausea/Vomiting/Diarrhea Stated complaint: nasuea, vomiting Time Seen by Provider: 04/22/25 18:05 Source: patient, RN notes reviewed Mode of arrival: ambulatory Limitations: no limitations - History of Present Illness Initial comments: 59-year-old female presents emergency department complaint of nausea vomiting abdominal discomfort. Patient states started this morning. She has had persistent vomiting throughout the day she states she feels dehydrated she has diffuse abdominal discomfort, cramping she had 1 episode of diarrhea. Patient states she is on current 3 antibiotic treatment for underlying lung infection followed by her under cutting machine operator. She does have some urinary frequency no hemat emesis no cough no emesis no melena hematochezia. Denies chest pain no headache or dizziness. - Related Data Home Medications Medication Instructions Recorded Confirmed Albuterol Inhaler [Ventolin Hfa 2 puff INHALATION RT-Q4H PRN 10/15/24 12/04/24 Inhaler] Fluticasone/Umeclidin/Vilanter 1 puff INHALATION RT-DAILY 10/15/24 12/04/24 [Trelegy Ellipta 200-62.5-25] HYDROcodone/APAP 5-325MG [[place] 1 tab PO TID PRN 10/15/24 12/04/24 5-325] buPROPion XL [Wellbutrin XL] 150 mg PO DAILY 10/15/24 12/04/24 Gabapentin [Neurontin] 400 mg PO TID 10/17/24 12/04/24 Sertraline [Zoloft] 100 mg PO DAILY 10/17/24 12/04/24 Ibuprofen [Motrin] 800 mg PO Q8H PRN 11/27/24 12/04/24 Previous Rx's Medication Instructions Recorded Ondansetron Odt [Zofran Odt] 4 mg PO Q8HR PRN #14 tab 04/22/25 Allergies Allergy/AdvReac Type Severity Reaction Status Date / Time monosodium glutamate [MSG] Allergy Dyspnea Verified 04/22/25 18:01 Penicillins Allergy Dyspnea Verified 04/22/25 18:01 Review of Systems ROS Statement: Those systems with pertinent positive or pertinent negative responses have been documented in the HPI. ROS Other: All systems not noted in ROS Statement are negative. 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, MAC infection History of Any Multi-Drug Resistant Organisms: None Reported Past Surgical History: Orthopedic Surgery Additional Past Surgical History / Comment(s): colonoscopy, EGD, right knee fatty tumour removed, surgery for cervical cancer, oral Past Anesthesia/Blood Transfusion Reactions: No Reported Reaction Additional Past Anesthesia/Blood Transfusion Reaction / Comment(s): no blood transfusion Past Psychological History: Depression Smoking Status: Current every day smoker, Vaper - Past Family History Mother Family Medical History: Hypertension General Exam Limitations: no limitations General appearance: alert, in no apparent distress Head exam: Present: atraumatic, normocephalic, normal inspection Eye exam: Present: normal appearance, PERRL, EOMI. Absent: scleral icterus, conjunctival injection, periorbital swelling ENT exam: Present: normal exam, mucous membranes moist Neck exam: Present: normal inspection, full ROM. Absent: tenderness, meningismus, lymphadenopathy Respiratory exam: Present: normal lung sounds bilaterally. Absent: respiratory distress, wheezes, rales, rhonchi, stridor Cardiovascular Exam: Present: regular rate, normal rhythm, normal heart sounds. Absent: systolic murmur, diastolic murmur, rubs, gallop, clicks GI/Abdominal exam: Present: soft, tenderness, normal bowel sounds. Absent: distended, guarding, rebound, rigid Course Vital Signs 04/22/25 04/22/25 04/22/25 17:59 19:50 21:15 Temperature 97.8 F Pulse Rate 54 L 53 L 65 Respiratory 16 16 18 Rate Blood Pressure 135/74 110/59 107/58 O2 Sat by Pulse 100 100 100 Oximetry Medical Decision Making - Medical Decision Making Was pt. sent in by a medical professional or institution (, PA, COFFEE BAR ATTENDANT, urgent care, hospital, or fpc...) When possible be specific @ -No Did you speak to anyone other than the patient for history (EMS, parent, family, police, friend...)? What history was obtained from this source @ -No Did you review nursing and triage notes (agree or disagree)? Why? @ -I reviewed and agree with nursing and triage notes Were old charts reviewed (outside hosp., previous admission, EMS record, old EKG, old radiological studies, urgent care reports/EKG's, fpc records)? Report findings @ -No old charts were reviewed Differential Diagnosis (chest pain, altered mental status, abdominal pain women, abdominal pain men, vaginal bleeding, weakness, fever, dyspnea, syncope, headache, dizziness, GI bleed, back pain, seizure, CVA, palpatations, mental health, musculoskeletal)? @ -[Differential Abdominal Pain Women: Appendicitis, Cholecystitis, diverticulosis, ischemic bowel, pancreatitis, hepatitis, UTI, gastroenteritis, AAA, incarcerated hernia, bowel obstruction, constipation, inflammatory bowel, hepatitis, peptic ulcer disease, splenic i nfarction, perforated viscus, vulvitis, ovarian torsion, PID, kidney stone, placenta abruption, this is not meant to be an all-inclusive list EKG interpreted by me (3pts min.). @ -None X-rays interpreted by me (1pt min.). @ -None done CT interpreted by me (1pt min.). @ -CT of the abdomen pelvis showing no acute intra-abdominal process no evidence of obstruction perforation no active diverticulitis. U/S interpreted by me (1pt. min.). @ -None done What testing was considered but not performed or refused? (CT, X-rays, U/S, labs)? Why? @ -None What meds were considered but not given or refused? Why? @ -None Did you discuss the management of the patient with other professionals (professionals i.e. , PA, COFFEE BAR ATTENDANT, lab, RT, psych nurse, perinatal social worker, cardiologist, teacher, code enforcement officer, insurance case manager)? Give summary @ -No Was smoking cessation discussed for >3mins.? @ -No Was critical care preformed (if so, how long)? @ -No Were there social determinants of health that impacted care today? How? (Mannie elessness, low income, unemployed, alcoholism, drug addiction, transportation, low edu. Level, literacy, decrease access to med. care, [facility], rehab)? @ -No Was there de-escalation of care discussed even if they declined (Discuss DNR or withdrawal of care, Hospice)? DNR status @ -No What co-morbidities impacted this encounter? (DM, HTN, Smoking, COPD, CAD, Cancer, CVA, ARF, Chemo, Hep., AIDS, mental health diagnosis, sleep apnea, morbid obesity)? @ -None Was patient admitted / discharged? Hospital course, mention meds given and route, prescriptions, significant lab abnormalities, going to OR and other pertinent info. @ -Discharge patient close rate improved after IV fluids, antiemetics. Patient has no localized abdominal pain nausea resolved patient was discharged with Zofran return parameters cussed. Undiagnosed new problem with uncertain prognosis? @ -No Drug Therapy requiring intensive monitoring for toxicity (Heparin, Nitro, Insulin, Cardizem)? @ -No Were any procedures done? @ -No Diagnosis/symptom? @ -Gastroenteritis Acute, or Chronic, or Acute on Chronic? @ -Acute Uncomplicated (without systemic symptoms) or Complicated (systemic symptoms)? @ -Complicated Side effects of treatment? @ -No Exacerbation, Progression, or Severe Exacerbation? @ -No Poses a threat to life or bodily function? How? (Chest pain, [place], [place], pneumonia, PE, COPD, DKA, ARF, appy, cholecystitis, CVA, Diverticulitis, Homicidal, Suicidal, threat to staff... and all critical care pts) @ -No - Lab Data Result diagrams: 04/22/25 19:49 04/22/25 19:49 Lab Results 04/22/25 04/22/25 04/22/25 Range/Units 19:30 19:49 19:49 WBC 9.29 (4.50-10.00) 10*3/uL RBC 4.01 L (4.10-5.20) 10*6/uL Hgb 12.6 (12.0-15.0) g/dL Hct 36.1 L (37.2-46.3) % MCV 90.0 (80.0-97.0) fL MCH 31.4 (27.0-32.0) pg MCHC 34.9 (32.0-37.0) g/dL Plt Count 227 (140-440) 10*3/uL MPV 9.6 (9.5-12.2) fL Immature Gran % (Auto) 0.4 % Neutrophils % 91.4 % Lymphocytes % 6.8 % Monocytes % 1.3 % Eosinophils % 0.0 % Basophils % 0.1 % Immature Gran # 0.04 (0.00-0.04) 10*3/uL Neutrophils # 8.49 H (1.80-7.70) 10*3/uL Lymphocytes # 0.63 L (0.90-5.00) 10*3/uL Monocytes # 0.12 L (0.20-1.00) 10*3/uL Eosinophils # 0.00 L (0.04-0.35) 10*3/uL Basophils # 0.01 (0.00-0.10) 10*3/uL Sodium 140 (137-145) mmol/L Potassium 4.2 (3.5-5.1) mmol/L Chloride 104 (98-107) mmol/L Carbon Dioxide 24 (22-30) mmol/L Anion Gap 12 mmol/L BUN 16 (7-17) mg/dL Creatinine 0.70 (0.52-1.04) mg/dL Est GFR (CKD-EPI)AfAm >90 (>60 ml/min/1.73 sqM) Est GFR (CKD-EPI)NonAf >90 (>60 ml/min/1.73 sqM) Glucose 132 H (74-99) mg/dL Calcium 9.9 (8.4-10.2) mg/dL Total Bilirubin 0.5 (0.2-1.3) mg/dL AST 23 (14-36) U/L ALT 13 (4-34) U/L Alkaline Phosphatase 76 (38-126) U/L Total Protein 7.5 (6.3-8.2) g/dL Albumin 4.8 (3.5-5.0) g/dL Lipase 28 (23-300) U/L Urine Color Yellow Urine Appearance Clear (Clear) Urine pH 8.5 H (5.0-8.0) Ur Specific [place] 1.050 H (1.001-1.035) Urine Protein Trace H (Negative) Urine Glucose (UA) Negative (Negative) Urine Ketones Trace H (Negative) Urine Blood Negative (Negative) Urine Nitrite Negative (Negative) Urine Bilirubin Negative (Negative) Urine Urobilinogen <2.0 (<2.0) mg/dL Ur Leukocyte Esterase Negative (Negative) Disposition Clinical Impression: Gastroenteritis Disposition: HOME SELF-CARE Condition: Stable Instructions (If sedation given, give patient instructions): Acute Nausea and Vomiting (ED) Additional Instructions: Please return to the Emergency Department if symptoms worsen or any other concerns. Prescriptions: Ondansetron Odt [Zofran Odt] 4 mg PO Q8HR PRN #14 tab PRN Reason: Nausea Is patient prescribed a controlled substance at d/c from ED?: No Referrals: Polo Qureshi DO [Primary Care Provider] - 1-2 days Time of Disposition: 21:41
[2025-04-22 20:15] LABS: ALT 13 U/L (4-34); AST 23 U/L (14-36); African American GFR (CKD) >90 (>60 ml/min/1.73 sqM); Albumin 4.8 g/dL (3.5-5.0); Alkaline Phosphatase 76 U/L (38-126); Anion Gap 12 mmol/L; Blood Urea Nitrogen 16 mg/dL (7-17); Calcium 9.9 mg/dL (8.4-10.2); Carbon Dioxide 24 mmol/L (22-30); Chloride 104 mmol/L (98-107); Glucose 132 mg/dL (74-99); Lipase 28 U/L (23-300); Non-African American GFR(CKD) >90 (>60 ml/min/1.73 sqM); Potassium 4.2 mmol/L (3.5-5.1); Sodium 140 mmol/L (137-145); Total Bilirubin 0.5 mg/dL (0.2-1.3); Total Protein 7.5 g/dL (6.3-8.2)
--- NOTE | 2025-04-22 20:47 | CT ---
EXAMINATION TYPE: CT abdomen pelvis w con DATE OF EXAM: 04/22/2025 8:38 PM COMPARISON: Prior CT abdomen/pelvis study dated 09/19/2015. CLINICAL INDICATION: Female, 59 years old with history of pain; abdominal pain, nausea, and vomiting TECHNIQUE: Axial CT abdomen pelvis w con;Sagittal and coronal reformats were created on a separate w orkstation. Contrast used:100 mL of Isovue 300 with IV Contrast, (none if empty) Oral contrast used: without Oral Contrast (none if empty) CT DLP: 468.8 mGycm, Automated exposure control for dose reduction was used. FINDINGS: LOWER CHEST: Unremarkable ABDOMEN LIVER: Unremarkable GALLBLADDER AND BILE DUCTS: Unremarkable. PANCREAS: Unremarkable. SPLEEN: Unremarkable. ADRENAL GLANDS: Unremarkable. KIDNEYS AND URETERS: No evidence of hydronephrosis or renal calculus. The ureters are unremarkable. PELVIS BLADDER: No evidence for wall thickening or mass given limitations of exam. REPRODUCTIVE: Unremarkable. ABDOMEN & PELVIS STOMACH AND BOWEL: Stomach and duodenum are unremarkable. No evidence of bowel obstruction. PERITONEUM/RETROPERITONEUM: No evidence of pneumoperitoneum or free fluid. VASCULATURE: No evidence of aortic aneurysm. MUSCULOSKELETAL: No acute osseous abnormalities LYMPH NODES: No gross evidence for lymphadenopathy. SOFT TISSUE/ABDOMINAL WALL: Unremarkable IMPRESSION: No acute abnormality in the abdomen/pelvis or CT findings to explain reported symptoms [facility], , 04/22/2025 8:44 PM
[2025-04-22 20:51] LABS: Appearance,Urine Clear (Clear); Bilirubin,Urine Negative (Negative); Blood,Urine Negative (Negative); Color,Urine Yellow; Glucose,Urine (UA) Negative (Negative); Ketones,Urine Trace (Negative); Leukocyte Esterase,Urine Negative (Negative); Nitrite,Urine Negative (Negative); PH, Urine 8.5 (5.0-8.0); Protein,Urine Trace (Negative); Urobilinogen,Urine <2.0 mg/dL (<2.0)
[2025-04-22] MEDS: KETOROLAC 15 MG/ML 1 ML VIAL IVP STA (21:13)
[2025-04-22 21:16] VITALS: BP 107/58; PULSE 65; RESP 18
== END 2025-04-22 21:58 | disposition home or self-care (01) ==
LOC: EC 17:54
DX: K52.9 Noninfective gastroenteritis and colitis, unspecified (principal); F17.290 Nicotine dependence, other tobacco product, uncomplicated; Z88.0 Allergy status to penicillin; Z88.8 Allergy status to other drugs, medicaments and biological substances
CPT/HCPCS: 36415; 80053; 83690; 85025; 81003; 74177; 99284; 96374; 96375; 96361; J2405; J1885; Q9967